=== PATIENT | female | born 1935 | race Two or more races ===

== ENCOUNTER 2024-11-04 14:08 | Inpatient (IN) | payer MEDICARE ==
[~2024-11-04] VITALS: Ht 154.9 cm; Wt 61.1 kg
--- NOTE | 2024-11-04 14:22 | ECG ---
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
--- NOTE | 2024-11-04 14:55 | ED.PDOC ---
Altered Mental Status HPI Comments 89 y.o female with PMHx of vertigo, HTN and HLD, residing in an assisted living facility, presented to the ED via EMS following a witnessed syncopal episode. Patient complained of abdominal and low back pain to a staff member in her home helping her with something. Staff member helped the patient into a wheelchair, at which point the syncopal episode occurred. Upon awakening, patient experienced multiple episodes of nausea and vomiting. EMS administered 4mg of Zofran ODT, resulting in symptom improvement. The patient reports her back pain began at approximately 1300 today after eating. She denies any associated head injuries, chest pain, or shortness of breath. Her medical history is notable for an abdominal infection two months prior, for which she was admitted and treated without further issues. At the time of presentation, she reports no abdominal pain however does have diffuse tenderness on palpation. Actively presents with dizziness as well as back pain. 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, Medications, Allergies Allergies: Coded Allergies: Codeine (Unverified Allergy, Unknown, 07/03/24) Information Source: Patient, Emergency Med Personnel Mode of Arrival: EMS Severity: Moderate Timing: Hours Duration: Since onset Prehospital treatment: Treatment (4mg Zofran ODT ) Quality: Decreased Alertness Recent: Nausea, Vomiting History of: None Associated Signs and Symptoms: Other Past Medical History PAST MEDICAL HISTORY: CHF, High Lipids, HTN Past Medical History (Other): vertigo Surgical History: Denies all surgeries CHILD WELFARE WORKER History: No Pertinent CHILD WELFARE WORKER History Family History Family History: Reviewed,noncontributory to illness Social History Smoker: Non-Smoker Alcohol: Denies ETOH Use Drugs: Denies Drug Use Lives In: Assisted Care Constitutional: denies: chills, diaphoresis, fatigue, fever, malaise, sweats, weakness, others EENTM: denies: blurred vision, double vision, ear bleeding, ear discharge, ear drainage, ear pain, ear ringing, eye pain, eye redness, hearing loss, mouth pain, mouth swelling, nasal discharge, nose bleeding, nose congestion, nose pain, photophobia, tearing, throat pain, throat swelling, voice changes, others Respiratory: denies: cough, hemoptysis, orthopnea, SOB at rest, shortness of breath, SOB with excertion, stridor, wheezing, others Cardiovascular: reports: lightheadedness, syncope; denies: chest pain, dizzy spells, diaphoresis, Dyspnea on exertion, edema, irregular heart beat, left arm pain, palpitations, PND, others Gastrointestinal: reports: abdominal pain, nausea, vomiting; denies: abdomen distended, blood streaked bowels, constipated, diarrhea, dysphagia, difficulty swallowing, hematemesis, melena, poor appetite, poor fluid intake, rectal bleeding, rectal pain, others Genitourinary: denies: abnormal vagina bleeding, burning, dyspareunia, dysuria, flank pain, frequency, hematuria, incontinence, pain, , vagina discharge, urgency, others Neurological: reports: dizziness; denies: fainting, headache, left sided numbness, left sided weakness, numbness, paresthesia, pre-existing deficit, right sided numbness, right sided weakness, seizure, speech problems, tingling, tremors, weakness, others Musculoskeletal: denies: back pain, gout, joint pain, joint swelling, muscle pain, muscle stiffness, neck pain, others Integumetry: denies: bruises, change in color, change in hair/nails, dryness, laceration, lesions, lumps, rash, wounds, others Allergic/Immunocompromised: denies: Difficulty Healing, Frequent Infections, Hives, Itching, others Endocrine: denies: excessive hunger, excessive sweating, excessive thirst, excessive urination, flushing, intolerance to cold, intolerance to heat, unexplained weight gain, unexplained weight loss, others Psychiatric: denies: anxiety, bipolar disorder, depression, hopeless, panic disorder, schizophrenia, sleepless, suicidal, others All Other Systems: Reviewed and Negative Physical Exam General Appearance: No Apparent Distress HEENT: Other (Pupils and face symmetric. Moist mucous membranes.) Neck: Full Range of Motion, Normal Inspection Respiratory: Lungs Clear, No Accessory Muscle Use, No Respiratory Distress, Normal Breath Sounds Cardiovascular: No Edema, No JVD, Regular Rate/Rhythm Breast Exam: Deferred Gastrointestinal: Diffuse, Soft, Tenderness Genitalia: Deferred Pelvic: Deferred Rectal: Deferred Extremities: Normal inspection, Normal range of motion, Non-tender, No pedal edema Neurologic: Alert (Oriented x4), Normal Affect, Normal Mood, Other (No gross focal deficit) Cerebellar Function: NOT DONE Reflexes: NOT DONE Skin: Dry, Normal Color, Warm Lymphatic: NOT DONE EKG EKG : Comments Sinus rhythm, rate 68, normal intervals, left axis deviation, no ST/T change. Was a procedure done? Was a procedure done?: No Differential Diagnosis (ALOC) Differential Diagnosis: Dehydration, Hypoglycemia, Encephalopathy, Heart Failure Other Differential Diagnosis Gastroenteritis, gastritis, colitis, diverticular disease, UTI, arrhythmia, RI, vasovagal syncope, CVA, TIA, among others X-Ray, Labs, Meds, VS Vital Signs Date Time Temp Pulse Resp B/P (MAP) Pulse Ox O2 Delivery O2 Flow Rate FiO2 11/04/24 19:45 66 11 94 Room Air* 0 21 11/04/24 19:45 97.8 66 11 162/59 (93) 94 97.8 11/04/24 19:00 67 12 152/52 (85) 95 11/04/24 17:00 69 12 149/61 (90) 97 11/04/24 15:20 97.9 80 12 152/62 (92) 97 97.9 11/04/24 15:20 80 12 97 Room Air* 0 21 11/04/24 14:20 97.7 72 20 140/57 96 97.7 11/04/24 14:11 68 Lab Test 11/04/24 17:11 11/04/24 16:03 11/04/24 15:00 11/04/24 14:41 Range/Units Lactic Acid Level 2.0 2.2 *H 0.4-2.0 mmol/L Troponin I High Sensitivity 20 19 </=34 ng/L White Blood Count 8.0 4.4-10.8 10^3/uL Red Blood Count 4.45 4.0-5.20 10^6/uL Hemoglobin 13.5 12.2-16.2 g/dL Hematocrit 39.9 36.0-46.0 % Mean Corpuscular Volume 89.6 80.0-100.0 fL Mean Corpuscular Hemoglobin 30.2 28.0-32.0 pg Mean Corpuscular Hemoglobin Concent 33.7 32.0-36.0 g/dL Red Cell Distribution Width 12.5 11.8-14.3 % Platelet Count 200 140-450 10^3/uL Mean Platelet Volume 8.0 6.9-10.8 fL Neutrophils (%) (Auto) 73.3 37.0-80.0 % Lymphocytes (%) (Auto) 19.7 10.0-50.0 % Monocytes (%) (Auto) 5.3 0.0-12.0 % Eosinophils (%) (Auto) 1.2 0.0-7.0 % Basophils (%) (Auto) 0.5 0.0-2.0 % Neutrophils # (Auto) 5.9 1.6-8.6 10 ^3/uL Lymphocytes # (Auto) 1.6 0.4-5.4 10 ^3/uL Monocytes # (Auto) 0.4 0-1.3 10 ^3/uL Eosinophils # (Auto) 0.1 0-0.8 10 ^3/uL Basophils # (Auto) 0 0-0.2 10 ^3/uL Nucleated Red Blood Cells 0.0 % Sodium Level 142 136-145 mmol/L Potassium Level 3.5 3.5-5.1 mmol/L Chloride Level 100 98-107 mmol/L Carbon Dioxide Level 33 H 20-31 mmol/L Anion Gap 9 5-15 Blood Urea Nitrogen 22 9-23 mg/dL Creatinine 0.92 0.550-1.02 mg/dL Glomerular Filtration Rate Calc 60 >90 mL/min BUN/Creatinine Ratio 23.9 H 10.0-20.0 Serum Glucose 186 H 74-106 mg/dL Calcium Level 9.0 8.7-10.4 mg/dL B-Type Natriuretic Peptide 244.59 0-100 pg/mL Current Medications Medications (Trade) Dose Ordered Sig/Giovana Route Start Time Stop Time Status Last Admin Sodium Chloride 500 ml @ 500 mls/hr Q1H ONCE IV 11/04/24 16:30 11/04/24 17:29 DC 11/04/24 18:59 Ondansetron HCl (Zofran) 4 mg ONCE ONCE IV 11/04/24 16:30 11/04/24 16:31 DC 11/04/24 19:01 PROCEDURE(s): HWOCT - HEAD WITHOUT CONTRAST REASON: syncope ORDER NUMBER(s): [id number], ACCESSION NUMBER(s): [id number] EXAM: CT HEAD WITHOUT CONTRAST INDICATION: syncope TECHNIQUE: CT images of the head were obtained without administration of IV contrast. CT scans at this facility use dose modulation, iterative reconstruction, and/or weight based dosing when appropriate to reduce radiation dose to as low as reasonably achievable. COMPARISON: None FINDINGS: PARENCHYMA: No acute hemorrhage. There is no mass effect, midline shift, or herniation. There is preservation of the lenz white differentiation. Mild scattered hypoattenuation along the periventricular, centrum semiovale, and deep white matter tracts, which are nonspecific however statistically most likely represent chronic microvascular ischemic change. VENTRICLES: No hydrocephalus. EXTRA-AXIAL SPACES: No extra-axial fluid collections. OTHER: The bony structures are intact. Visualized portions of the paranasal sinuses and mastoid air cells are clear. IMPRESSION: 1. No CT evidence of an acute intracranial abnormality. 2. Mild chronic microvascular ischemic change. EDURE(s): CXRP - CHEST PORTABLE REASON: syncope ORDER NUMBER(s): [id number], ACCESSION NUMBER(s): [id number] EXAM: XY CHEST PORTABLE HISTORY: syncope TECHNIQUE: 1 view of the chest COMPARISON: None FINDINGS/IMPRESSION: LUNGS: No pleural effusion, consolidation, or pneumothorax MEDIASTINUM: Unremarkable BONES: No acute osseous abnormality OTHER: None EDURE(s): ABPL - CT AB PEL WO CON-NO ORAL OR IV REASON: abd pain n/v/constip ORDER NUMBER(s): [id number], ACCESSION NUMBER(s): [id number] EXAM: CT CT AB PEL WO CON-NO ORAL OR IV INDICATION: abd pain n/v/constip TECHNIQUE: Volumetric multidetector CT images of the abdomen and pelvis were obtained without contrast. All CT scans at this facility use dose modulation, iterative reconstruction, and/or weight based dosing when appropriate to reduce radiation dose to as low as reasonably achievable. COMPARISON: CT CT AB PEL WO CON-NO ORAL OR IV on DOS: 07/04/24 FINDINGS: [LOWER CHEST]: The partially visualized lung bases are clear without a pleural effusion. The cardiac size is normal without pericardial effusion. [LIVER]: Normal hepatic size without suspicious focal lesion. [GALLBLADDER AND BILIARY TREE]: Surgically absent. [SPLEEN]: Unremarkable. [PANCREAS]: Unremarkable. [ADRENAL GLANDS]: Unremarkable [KIDNEYS]: No hydronephrosis. Left 1 - 2 mm nonobstructive renal calyceal stones. [BLADDER]: Unremarkable for the degree distention. [REPRODUCTIVE ORGANS]: Hysterectomy. [BOWEL/MESENTERY]: Stomach is normal. No CT evidence of bowel obstruction. Mild to moderate sigmoid diverticulosis. [ASCITES]: Absent [LYMPHADENOPATHY]: No pathologically enlarged lymph nodes by CT size criteria [VASCULATURE]: No aneurysmal dilatation. [ABDOMINAL WALL]: Unremarkable. [MUSCULOSKELETAL]: No acute fracture or aggressive focal osseous lesion. Multifocal degenerative change of the visualized spine. IMPRESSION: 1. No CT evidence of an acute abdominal/pelvic process. 2. Mild to moderate sigmoid diverticulosis. 3. Nonobstructive left renal calyceal stones. 4. Mild to moderate sigmoid diverticulosis. X-Ray, Labs, Meds, VS Comment 89-year-old female with a history of vertigo, hypertension, dyslipidemia and CHF presenting with abdominal pain, back pain, nausea, vomiting and a syncopal episode associated with dizziness Vitals remarkable for BP 140/57 Exam remarkable for diffuse abdominal tenderness Rhythm strip independently interpreted by me: Sinus rhythm, rate 68, no ectopy. Head CT, chest x-ray and CT abdomen and pelvis unremarkable for any acute finding CBC, basic metabolic panel and troponin unremarkable. BNP 244.59. Lactate 2.2 Patient treated with the following in the ED: 500 cc 0.9 normal saline IV bolus, Tylenol 1 g p.o., Zofran 4 mg IV On re-evaluation, patient states nausea has improved. Pain has somewhat improved. Vitals were stable. Patient states she still feels generally weak and somewhat dizzy. Plan is to admit the patient for observation, possible brain MRI and neuro evaluation. Time of 1ST Reevaluation: 15:00 Reevaluation 1ST: Unchanged Patient Education/Counseling: Diagnosis, Treatment, Prognosis Family Education/Counseling: No Family Present SEPSIS Sepsis Screen Date sepsis recognized/suspect: Nov 04, 2024 Time Sepsis recognized/suspect: 1416 Recent Procedure: No On Antibiotic Therapy: No Respiratory Rate >20: No Heart Rate >90: No Temp<36 C (96.8 F) or >38.3 C: No SBP <90 or MAP <65 mmHG: No New Acute Mental Status Change: No Is the patient on CPAP, BIPAP,: No SEPSIS EXCLUSION NOTE: Sepsis Exclusion Note: Patient presents with SIRS criteria, but the SIRS response is attributed to [dehydration ], not sepsis. Sepsis bundle is not initiated at this time, due to this reason. Further management will focus on the treatment of the above condition (s). Physician Orders Chest Portable (11/04/24 14:29) Urinalysis (11/04/24 14:29) Head Without Contrast (11/04/24 14:29) Ct Ab Pel Wo Con-No Oral Or Iv (11/04/24 14:37) Blood Culture (11/04/24 14:37) Insert/Manage Urinary Catheter QSHIFT (11/04/24 19:55) Vital Signs Date Time Temp Pulse Resp B/P (MAP) Pulse Ox O2 Delivery O2 Flow Rate FiO2 11/04/24 19:45 66 11 94 Room Air* 0 21 11/04/24 19:45 97.8 66 11 162/59 (93) 94 97.8 11/04/24 19:00 67 12 152/52 (85) 95 11/04/24 17:00 69 12 149/61 (90) 97 11/04/24 15:20 97.9 80 12 152/62 (92) 97 97.9 11/04/24 15:20 80 12 97 Room Air* 0 21 11/04/24 14:20 97.7 72 20 140/57 96 97.7 11/04/24 14:11 68 Laboratory Tests Test 11/04/24 14:41 11/04/24 15:00 11/04/24 17:11 White Blood Count 8.0 10^3/uL (4.4-10.8) Lactic Acid Level 2.2 mmol/L (0.4-2.0) *H 2.0 mmol/L (0.4-2.0) Medications Medications Dose Ordered Sig/Giovana Route Start Time Stop Time Status Last Admin Dose Admin Ondansetron HCl 4 mg ONCE ONCE IV 11/04/24 16:30 11/04/24 16:31 DC 11/04/24 19:01 Sodium Chloride 500 ml @ 500 mls/hr Q1H ONCE IV 11/04/24 16:30 11/04/24 17:29 DC 11/04/24 18:59 Departure 1 Departure Time of Disposition: 16:21 Impression: Primary Impression: Syncope Additional Impressions: Abdominal pain Nausea and vomiting Generalized weakness Disposition: ADMITTED INPATIENT Admit to: Tele Condition: Guarded Critical Care Note Critical Care Time?: No Stability Stability form required: No Heart Score Heart Score: Heart Score Response (Comments) Value History N/A 0 EKG N/A 0 Age N/A 0 Risk Factors N/A 0 Troponin N/A 0 Total 0 I personally scribed for CALISTA SOTELO MD ([email or web address]) on 11/04/24 at 14:54. Electronically submitted by Jaida Cadena ([facility]). CALISTA SOTELO MD Nov 04, 2024 14:54
[2024-11-04 14:56] LABS: Hematocrit 39.9 % (36.0-46.0); Hemoglobin 13.5 g/dL (12.2-16.2); Mean Corpuscular Hemoglobin 30.2 pg (28.0-32.0); Mean Corpuscular Volume 89.6 fL (80.0-100.0); Nucleated Red Blood Cells % 0.0 %
[2024-11-04 15:07] LABS: Chloride 100 mmol/L (98-107); Sodium 142 mmol/L (136-145)
[2024-11-04 15:08] LABS: Anion Gap 9 (5-15); Calcium 9.0 mg/dL (8.7-10.4)
[2024-11-04 15:13] LABS: BUN/Creatinine Ratio 23.9 (10.0-20.0); Blood Urea Nitrogen 22 mg/dL (9-23)
[2024-11-04 15:17] LABS: Carbon Dioxide 33 mmol/L (20-31); Glucose 186 mg/dL (74-106); Potassium 3.5 mmol/L (3.5-5.1)
[2024-11-04 15:20] VITALS: PULSE 80; RESP 12; O2SAT 97
--- NOTE | 2024-11-04 15:46 | DVH ---
EXAM: XY CHEST PORTABLE HISTORY: syncope TECHNIQUE: 1 view of the chest COMPARISON: None FINDINGS/IMPRESSION: LUNGS: No pleural effusion, consolidation, or pneumothorax MEDIASTINUM: Unremarkable BONES: No acute osseous abnormality OTHER: None
--- NOTE | 2024-11-04 15:57 | DVH ---
EXAM: CT HEAD WITHOUT CONTRAST INDICATION: syncope TECHNIQUE: CT images of the head were obtained without administration of IV contrast. CT scans at [facility] facility use dose modulation, iterative reconstruction, and/or weight based dosing when appropriate to reduce radiation dose to as low as reasonably achievable. COMPARISON: None FINDINGS: PARENCHYMA: No acute hemorrhage. There is no mass effect, midline shift, or herniation. There is pres ervation of the lenz white differentiation. Mild scattered hypoattenuation along the periventricular, centrum semiovale, and deep white matter tracts, which are nonspecific however statistically most li lorna represent chronic microvascular ischemic change. VENTRICLES: No hydrocephalus. EXTRA-AXIAL SPACES: No extra-axial fluid collections. OTHER: The bony structures are intact. Visualized portions of the paranasal sinuses and mastoid air cells are clear. IMPRESSION: 1. No CT evidence of an acute intracranial abnormality. 2. Mild chronic microvascular ischemic change.
[2024-11-04 16:02] LABS: Lactic Acid w/Reflex 2.2 mmol/L (0.4-2.0)
--- NOTE | 2024-11-04 16:04 | DVH ---
EXAM: CT CT AB PEL WO CON-NO ORAL OR IV INDICATION: abd pain n/v/constip TECHNIQUE: Volumetric multidetector CT images of the abdomen and pelvis were obtained without contras t. All CT scans at this facility use dose modulation, iterative reconstruction, and/or weight based d osing when appropriate to reduce radiation dose to as low as reasonably achievable. COMPARISON: CT CT AB PEL WO CON-NO ORAL OR IV on DOS: 07/04/24 FINDINGS: [LOWER CHEST]: The partially visualized lung bases are clear without a pleural effusion. The cardiac size is normal without pericardial effusion. [LIVER]: Normal hepatic size without suspicious focal lesion. [GALLBLADDER AND BILIARY TREE]: Surgically absent. [SPLEEN]: Unremarkable. [PANCREAS]: Unremarkable. [ADRENAL GLANDS]: Unremarkable [KIDNEYS]: No hydronephrosis. Left 1 - 2 mm nonobstructive renal calyceal stones. [BLADDER]: Unremarkable for the degree distention. [REPRODUCTIVE ORGANS]: Hysterectomy. [BOWEL/MESENTERY]: Stomach is normal. No CT evidence of bowel obstruction. Mild to moderate sigmoid d iverticulosis. [ASCITES]: Absent [LYMPHADENOPATHY]: No pathologically enlarged lymph nodes by CT size criteria [VASCULATURE]: No aneurysmal dilatation. [ABDOMINAL WALL]: Unremarkable. [MUSCULOSKELETAL]: No acute fracture or aggressive focal osseous lesion. Multifocal degenerative dubose ge of the visualized spine. IMPRESSION: 1. No CT evidence of an acute abdominal/pelvic process. 2. Mild to moderate sigmoid diverticulosis. 3. Nonobstructive left renal calyceal stones. 4. Mild to moderate sigmoid diverticulosis.
[2024-11-04] MEDS ORDERED: MORPHINE SULFATE 4 MG/ML SYR/VIAL IV ONE (16:30)
[2024-11-04] MEDS: SODIUM CHLORIDE 0.9% 500 ML IV ONE (18:59)
[2024-11-04] MEDS: ONDANSETRON HCL 4 MG/2 ML VIAL IV ONE (19:01)
[2024-11-04] MEDS ORDERED: HYDROcodone-ACET 5/325MG TAB PO ONE (19:15)
[2024-11-04 19:45] VITALS: PULSE 66; RESP 11; O2SAT 94
[2024-11-04] MEDS: ONDANSETRON HCL 4 MG/2 ML VIAL ONE (20:26)
[2024-11-04] MEDS: ACETAMINOPHEN 325 MG TAB PO ONE ×2 (20:36→20:37)
[2024-11-04] MEDS ORDERED: ACETAMINOPHEN 325 MG TAB PO PRN (22:30)
[2024-11-04] MEDS ORDERED: ONDANSETRON HCL 4 MG/2 ML VIAL IV PRN (22:30)
[2024-11-04] MEDS ORDERED: DOCUSATE SOD 100 MG CAP PO PRN (22:30)
[2024-11-04 22:33] LABS: Urine Budding Yeast OCCASIONAL /hpf (None Seen); Urine Protein, UAD Negative (Negative)
--- NOTE | 2024-11-04 22:56 | DVHHPRES ---
History of Present Illness Resident Creating Document: JAZIEL CARBAJAL RESIDENT History of Present Illness Moon Metzger is a 89 year old female with past medical history of vertigo, hypertension, hyperlipidemia, CHF who lives in a assisted living facility presented to the ED with chief complaints of dizziness followed by a syncopal episode. Patient states that she was feeling dizzy in the morning after she woke up, went to a neighbor's house for lunch and when returning to get out of her wheelchair which caused a severe pain in her lower back for which after she felt lightheaded, dizzy, states that she passed out in her walker according to her caregiver. As per the caregiver she lost consciousness for 2-3 minutes in her wheelchair. Patient states that she does not remember passing out and on awakening she saw vomit on herself. Patient states that she never lost consciousness before, but has had multiple fall episodes due to feeling dizzy. As of now patient states she has lower back pain, and dizziness but denies any chest pain, head injuries, shortness for breath, palpitations, nausea, vomiting, fever, chills, headaches, dysuria, diarrhea. Patient also states that she had been taking Eliquis in the past for some type of clot which she is unsure of. Patient is admitted for further evaluation and management. Past medical history: vertigo, hypertension, hyperlipidemia, CHF Past surgical history: Appendicectomy, hysterectomy, cholecystectomy Family history: Reviewed, noncontributory Personal history: Denies smoking, drinking, drug use Lives in: Assisted Living facility Review of Systems Constitutional: Yes: Other (Dizziness, syncope); No: Fever, Chills, Sweats, Weakness, Malaise Eyes: No: Pain, Vision change, Conjunctivae inflammation, Eyelid inflammation, Other, Redness ENT: No: Ear pain, Ear discharge, Nose pain, Nose discharge, Nose congestion, Mouth pain, Mouth swelling, Throat pain, Throat swelling, Other Respiratory: No: Cough, Dry, Shortness of breath, SOB with excertion, Wheezing, Hemoptysis, Pleuritic Pain, Sputum, Wheezing, Other Cardiovascular: No: Chest Pain, Palpitations, Orthopnea, Paroxysmal Noc. Dyspnea, Edema, Lt Headedness, Other Gastrointestinal: Nausea, Vomiting; No: Abdominal Pain, Diarrhea, Constipation, Melena, Hematochezia, Other Genitourinary: No Dysuria, No Frequency, No Incontinence, No Hematuria, No Retention, No Other Musculoskeletal: No: other, neck pain, shoulder pain, arm pain, back pain, hand pain, leg pain, foot pain Skin: No: Rash, Lesions, Jaundice, Bruising, Other Neurological: No: Weakness, Numbness, Incoordination, Change in speech, Confusion, Seizures, Other Allergies: Coded Allergies: Codeine (Unverified Allergy, Unknown, 07/03/24) Exam Vital Signs Vital Signs Date Time Temp Pulse Resp B/P (MAP) Pulse Ox O2 Delivery O2 Flow Rate FiO2 11/04/24 21:45 98.0 11/04/24 19:45 66 11 94 Room Air* 0 21 11/04/24 19:45 162/59 (93) Exam General: Patient alert and oriented in person, place and time. Patient following commands. HEENT: Normocephalic, atraumatic, moist mucous membranes Respiratory/pulmonary: Clear lungs bilaterally, vesicular murmurs present in almost all lung roy, no associated crackles or wheezes. Cardiovascular: Normal heart sounds S1 and S2 with no associated murmurs Abdomen: Abdomen nondistended, there is no pain to palpation in any of the abdominal quadrants, no palpable masses. Extremities: There is no peripheral edema present at the lower extremities. Peripheral Pulses: 3+ Radial (R). 3+ Radial (L). 3+ Dorsalis pedis (R). 3+ Dorsalis pedis(L) Skin: No rashes or pruritus, there is no sacral edema present at this time. Neurological: Intact cranial nerves with no focal neurologic deficits Psych/mood: Normal Labs/Xrays Labs Test 11/04/24 22:00 11/04/24 17:11 11/04/24 16:03 11/04/24 14:41 Range/Units Urine Color Light-yellow Yellow Urine Clarity Turbid H Clear Urine pH 7.0 5.0-9.0 Urine Specific [place] 1.009 1.001-1.035 Urine Protein Negative Negative Urine Ketones Negative Negative Urine Blood Trace H Negative /uL Urine Nitrite 2+ H Negative Urine Bilirubin Negative Negative Urine Urobilinogen Normal Negative mg/dL Urine Leukocyte Esterase Trace Negative /uL Urine RBC 1 0 - 4 /hpf Urine Microscopic WBC 6 H 0-5 /HPF Urine Squamous Epithelial Cells Few <5 /hpf Urine Bacteria Few H None Seen /hpf Urine Yeast (Budding) Occasional None Seen /hpf Urine Glucose Normal Normal mg/dL Lactic Acid Level 2.0 0.4-2.0 mmol/L Troponin I High Sensitivity 20 </=34 ng/L White Blood Count 8.0 4.4-10.8 10^3/uL Red Blood Count 4.45 4.0-5.20 10^6/uL Hemoglobin 13.5 12.2-16.2 g/dL Hematocrit 39.9 36.0-46.0 % Mean Corpuscular Volume 89.6 80.0-100.0 fL Mean Corpuscular Hemoglobin 30.2 28.0-32.0 pg Mean Corpuscular Hemoglobin Concent 33.7 32.0-36.0 g/dL Red Cell Distribution Width 12.5 11.8-14.3 % Platelet Count 200 140-450 10^3/uL Mean Platelet Volume 8.0 6.9-10.8 fL Neutrophils (%) (Auto) 73.3 37.0-80.0 % Lymphocytes (%) (Auto) 19.7 10.0-50.0 % Monocytes (%) (Auto) 5.3 0.0-12.0 % Eosinophils (%) (Auto) 1.2 0.0-7.0 % Basophils (%) (Auto) 0.5 0.0-2.0 % Neutrophils # (Auto) 5.9 1.6-8.6 10 ^3/uL Lymphocytes # (Auto) 1.6 0.4-5.4 10 ^3/uL Monocytes # (Auto) 0.4 0-1.3 10 ^3/uL Eosinophils # (Auto) 0.1 0-0.8 10 ^3/uL Basophils # (Auto) 0 0-0.2 10 ^3/uL Nucleated Red Blood Cells 0.0 % Sodium Level 142 136-145 mmol/L Potassium Level 3.5 3.5-5.1 mmol/L Chloride Level 100 98-107 mmol/L Carbon Dioxide Level 33 H 20-31 mmol/L Anion Gap 9 5-15 Blood Urea Nitrogen 22 9-23 mg/dL Creatinine 0.92 0.550-1.02 mg/dL Glomerular Filtration Rate Calc 60 >90 mL/min BUN/Creatinine Ratio 23.9 H 10.0-20.0 Serum Glucose 186 H 74-106 mg/dL Calcium Level 9.0 8.7-10.4 mg/dL B-Type Natriuretic Peptide 244.59 0-100 pg/mL SEPSIS Sepsis Screen Date sepsis recognized/suspect: Nov 04, 2024 Time Sepsis recognized/suspect: 1948 Recent Procedure: No On Antibiotic Therapy: No Respiratory Rate >20: No Heart Rate >90: No Temp<36 C (96.8 F) or >38.3 C: No SBP <90 or MAP <65 mmHG: No New Acute Mental Status Change: No Is the patient on CPAP, BIPAP,: No Physician Orders Insert/Manage Urinary Catheter QSHIFT (11/04/24 19:55) Admit (11/04/24 22:21) Allergies (11/04/24 22:21) Ondansetron Hcl (Zofran) (11/04/24 22:30) Docusate Sodium Capsule (Colace Capsule) (11/04/24 22:30) Fall Risk Precautions In Place QSHIFT (11/04/24 22:21) Complete Blood Count (11/05/24 04:00) Comprehensive Metabolic Panel (11/05/24 04:00) Condition: Serious (11/04/24 22:21) Acetaminophen Tablet (Tylenol Tablet) (11/04/24 22:30) Vital Signs Date Time Temp Pulse Resp B/P (MAP) Pulse Ox O2 Delivery O2 Flow Rate FiO2 11/04/24 21:45 98.0 11/04/24 19:45 66 11 94 Room Air* 0 21 11/04/24 19:45 97.8 66 11 162/59 (93) 94 97.8 11/04/24 19:00 67 12 152/52 (85) 95 11/04/24 17:00 69 12 149/61 (90) 97 11/04/24 15:20 97.9 80 12 152/62 (92) 97 97.9 11/04/24 15:20 80 12 97 Room Air* 0 21 Laboratory Tests Test 11/04/24 14:41 11/04/24 15:00 11/04/24 17:11 White Blood Count 8.0 10^3/uL (4.4-10.8) Lactic Acid Level 2.2 mmol/L (0.4-2.0) *H 2.0 mmol/L (0.4-2.0) Medications Medications Dose Ordered Sig/Giovana Route Start Time Stop Time Status Last Admin Dose Admin Acetaminophen 650 mg ONCE ONCE PO 11/04/24 20:00 11/04/24 20:01 DC 11/04/24 20:36 650 MG Ondansetron HCl 4 mg ONCE ONCE IV 11/04/24 16:30 11/04/24 16:31 DC 11/04/24 19:01 4 MG Sodium Chloride 500 ml @ 500 mls/hr Q1H ONCE IV 11/04/24 16:30 11/04/24 17:29 DC 11/04/24 18:59 500 MLS/HR Assessment/Plan Assessment/Plan Assessment and plan # syncope due to ? Dehydration ? orthostatic hypotension? arrythemias? - Head Ct showed Mild chronic microvascular ischemic change. - vitamin-B12 - TSH - Folate -orthostatic vitals - BNP - EKG # Acute Complicated UTI ?Pyelonephritis - IV ceftriaxone -urine culture # 1 - 2 mm Nonobstructive left renal calyceal stones # Mild to moderate sigmoid diverticulosis. - follow-up outpatient # hypertension - continue home meds # hyperlipidemia - continue home meds # history of vertigo PPI prophylaxis: Pantoprazole DVT prophylaxis: not indicated Goals of care addressed with the patient for more than 33 minutes: Full code status Case discussed with Dr. Colbert , patient and nurse Plan discussed with: Patient My Orders Orders - JAZIEL CARBAJAL RESIDENT Procedure Category Date Status Time Admit ADMIT 11/04/24 Transmitted 22:21 Allergies JEREMY 11/04/24 In Process 22:21 Ondansetron Hcl PHA 11/04/24 In Process (Zofran) 22:30 Docusate Sodium PHA 11/04/24 In Process Capsule (Colace 22:30 Fall Risk Precautions JEREMY 11/04/[address] 22:21 Complete Blood Count LAB 11/05/24 Verified 04:00 Comprehensive LAB 11/05/24 Verified Metabolic Panel 04:00 Condition: Serious JEREMY 11/04/24 In Process 22:21 Acetaminophen Tablet PHA 11/04/24 In Process (Tylenol Tablet) 22:30 Date of Service: Nov 04, 2024 Billing Provider: MARIIA COLBERT MD Common Visit Codes: [id number] INP/OBS CARE (HIGH) Secondary Visit Codes: [id number] CARE PLAN 30 MINUTES JAZIEL CARBAJAL RESIDENT Nov 04, 2024 22:56 SHAHLA WOOD RESIDENT Nov 05, 2024 04:31
[2024-11-05 01:44] LABS: INR 1.05 (0.9-1.15); Partial Thromboplastin Time 26.0 SEC (24.5-34.5); Prothrombin Time 11.1 sec (9.3-11.8)
[2024-11-05 05:41] LABS: Hematocrit 38.6 % (36.0-46.0); Hemoglobin 12.8 g/dL (12.2-16.2); Mean Corpuscular Hemoglobin 29.5 pg (28.0-32.0); Mean Corpuscular Volume 89.2 fL (80.0-100.0); Nucleated Red Blood Cells % 0.1 %
[2024-11-05 05:50] LABS: Albumin 3.5 g/dL (3.2-4.8); Anion Gap 9 (5-15); BUN/Creatinine Ratio 14.9 (10.0-20.0); Bilirubin, Total 0.8 mg/dL (0.2-1.0); Blood Urea Nitrogen 11 mg/dL (9-23); Calcium 9.1 mg/dL (8.7-10.4); Carbon Dioxide 30 mmol/L (20-31); Chloride 104 mmol/L (98-107); Glucose 105 mg/dL (74-106); Sodium 143 mmol/L (136-145); Total Protein 6.2 g/dL (5.7-8.2)
[2024-11-05 05:51] LABS: Alanine Aminotransferase 76 U/L (7-40); Alkaline Phosphatase 145 U/L (46-116); Potassium 3.5 mmol/L (3.5-5.1)
[2024-11-05] MEDS: InsuLIN REG 1unit/0.01ml Soln (100units/ml) SC SCH ×2 (07:00→21:30)
[2024-11-05] MEDS ORDERED: DEXTROSE (50%) 50ML SYRG IV PRN (07:00)
[2024-11-05] MEDS: ACCU-CHEK COMFORT CURVE STRIP VI SCH (07:10)
[2024-11-05] MEDS: InsuLIN REG 1unit/0.01ml Soln (100units/ml) ONE (07:27)
[2024-11-05 08:49] VITALS: PULSE 65; RESP 16; O2SAT 91
--- NOTE | 2024-11-05 08:59 | DVH ---
Carotid Duplex Date: 11/05/2024 08:18 AM Clinical History: Syncope Comparison: None Technique: Duplex Doppler evaluation of the extracranial carotid and vertebral arteries including col or Doppler and spectral/pulsed waveform analysis was performed. Findings: Velocities and ratios within normal limits IMPRESSION: No hemodynamically significant stenosis noted in the right carotid system. No hemodynamically significant stenosis noted in the left carotid system. Reference: Radiology 2003; 229:340-346
[2024-11-05] MEDS ORDERED: APIX2.5T PO (12:07)
[2024-11-05] MEDS ORDERED: HYDR12.55 PO (12:07)
[2024-11-05] MEDS ORDERED: FURO20TA4 PO (12:07)
[2024-11-05] MEDS ORDERED: POTA-211 PO (12:07)
[2024-11-05] MEDS ORDERED: ATEN25TA PO (12:07)
[2024-11-05] MEDS ORDERED: ATOR40TA52 PO (12:07)
--- NOTE | 2024-11-05 13:14 | DVHSR ---
APPROVED REPORT EXAM: Two-dimensional and M-mode echocardiogram with Doppler and color Doppler. Blood Pressure: 162/59 mmHg INDICATION Syncope RISK FACTORS Height: 61, Weight: 132 DIMENSIONS LVDd4.1 (3.8-5.7cm)LA (2D)3.7 (1.9-4.0cm)Aortic Root3.1 (2.0-3.7cm) LVDs2.9 (2.5-4.0cm)LA (MM) (1.9-4.0cm)Aortic Cusp Exc1.3 (1.5-2.0cm) EF (%) 55.0 (55-70%)Rt. Atrium3.8 (1.9-4.0cm)Asc. Aorta cm Mitral Valve MitralMitral Stenosis E wave1.05m/sMV Mean GR.2mmHg A wave0.59m/sMV Peak GR.70mmHg E/A ratio1.82D MVAcm2 DECEL [id number] 1/2 [id number] IVRTmsDop MVA3.50cm2 Aortic Valve Aortic ValveAortic Stenosis V10.82m/Miles Mean GR.4mmHg V21.36m/Miles Peak GR.7mmHg LVOT Diameter1.9 (1.8-2.4cm)Doppler AVA1.71cm2 Pulmonic Valve V20.75m/s Tricuspid Valve TR Velocity3.89m/s [id number] Other Information Technically limited study due to body habitus. Conclusion lvef 50% moderate LVH normal rv function normal atria no severe valve abnormality noted
[2024-11-05 13:20] VITALS: PULSE 65; RESP 16
[2024-11-05 13:50] VITALS: BP 155/72; PULSE 70; RESP 18; TEMP 98.2; O2SAT 96
[2024-11-05 17:00] VITALS: BP_SYST 159; BP_SYST 162; BP_SYST 174; BP_DIAS 75; BP_DIAS 78; BP_DIAS 81; PULSE 74; PULSE 80; PULSE 86; RESP 14; RESP 16; TEMP 98.5; O2SAT 93; O2SAT 94; O2SAT 96
[2024-11-05] MEDS ORDERED: ENOXAPARIN SOD 80 MG/0.8ML SYRINGE SC ONE (17:15)
[2024-11-05] MEDS: ATENOLOL 25 MG TAB PO ONE (18:53)
[2024-11-05 20:00] VITALS: PULSE 67
[2024-11-05 21:00] VITALS: BP_SYST 139; BP_SYST 144; BP_DIAS 68; BP_DIAS 70; BP_DIAS 73; PULSE 69; PULSE 71; PULSE 72; RESP 18; TEMP 98.6; O2SAT 91; O2SAT 92
[2024-11-05] MEDS: ENOXAPARIN SOD 60 MG/0.6 ML SYRINGE SC SCH (21:27)
[2024-11-05] MEDS ORDERED: ATORVASTATIN 20 MG TAB PO SCH (22:00)
--- NOTE | 2024-11-05 22:16 | DVHPNRES ---
Progress Note Date Seen: Nov 05, 2024 Resident Creating Document: HADLEY BARNETT RESIDENT Medical Necessity Reason Pt with a Central, PICC or Fol: No Subjective Review of Systems Ascencion Metzger a 89-year-old female with past medical history of vertigo, hypertension, hyperlipidemia, systolic heart failure with preserved ejection fraction living in assisted living facility presented to the ED with chief complaints of syncope preceded by dizziness. According to the admission notes, the caregiver noticed the patient slumped over in the wheelchair after returning from a neighbor's house. The patient reports loss of consciousness, upon regaining consciousness but the patient is covered herself covered with vomitus. She denies any chest pain, shortness of breath, fever, abdominal pain or any other complaints today. Past medical history: Vertigo, hypertension, hyperlipidemia, congestive heart failure Past surgical history, appendectomy, hysterectomy, cholecystectomy Family history noncontributory Personal history: Denies smoking drinking drug use Lives in assisted living facility Code status: Full code Patient was seen and examined at bedside. Overnight events were reviewed. Reports having mild dizziness, she denies any chest pain, shortness of breath, fever or any other complaints today. Objective vital signs Vital Sign Date Time Temp Pulse Resp B/P (MAP) Pulse Ox O2 Delivery O2 Flow Rate FiO2 11/05/24 18:53 74 162/78 11/05/24 17:00 16 93 11/05/24 17:00 98.5 98.5 11/05/24 13:20 Room Air* 0 21 Total Intake and Output 11/04/24 11/04/24 11/05/24 15:00 23:00 07:00 Intake Total 500 ml Balance 500 ml medications Current Medications Medications Dose Ordered Sig/Giovana Route Start Time Stop Time Status Last Admin Dose Admin Ondansetron HCl 4 mg Q4HP PRN IV 11/04/24 22:30 Acetaminophen 650 mg Q6HP PRN PO 11/04/24 22:30 Ceftriaxone Sodium 50 ml @ 100 mls/hr DAILY@09 IV 11/06/24 09:00 Diagnostic Test (Pha) 1 strip ACHS 11/05/24 07:00 11/05/24 21:29 1 STRIP Insulin Human Regular AC SC 11/05/24 07:00 Insulin Human Regular HS SC 11/05/24 22:00 Dextrose 50 ml UD PRN IV 11/05/24 07:00 Atorvastatin Calcium 20 mg HS PO 11/06/24 22:00 Enoxaparin Sodium 60 mg Q12HR SC 11/05/24 22:00 11/05/24 21:27 60 MG Atenolol 25 mg DAILY PO 11/06/24 10:00 Examination Pt is lying on bed General Appearance: Alert, Oriented X3, Cooperative, Mild distress HEENT: Atraumatic, Mucous membranes moist/pink Respiratory: Clear to auscultation, Normal air movement, No added sounds Cardiovascular: Regular rate, Normal S1, Normal S2, No murmurs Abdominal/ : Active bowel sounds, Soft, no distention, no tenderness Extremities: No edema, Normal pulses, No tenderness/swelling, 7x8 cm ecchymoses over bilateral wrist regions Skin: No Significant rash, except past surgical scars Neuro: Normal speech, sensorimotor deficits none Psych/Mental Status: Mental status NL, Mood NL Nurse was there as window sash installer during examination laboratory and microbiology Laboratory Tests 11/05/24 05:07 Test 11/05/24 05:07 Range/Units Serum Glucose 105 74-106 mg/dL Microbiology Date/Time Source Procedure Growth Status 11/05/24 09:21 Nose MRSA Screen - Final Complete 11/04/24 15:00 Blood Blood Culture - Preliminary NO GROWTH AFTER 24 HOURS OF INCUBATION. Resulted Labs and/or images reviewed: Labs reviewed by me, Image(s) reviewed by me Problem List/Assessment/Plan Problem List/Assessment/Plan Syncope likely orthostatic hypotension EKG: Sinus rhythm, left axis deviation: Low voltage in precordial leads, abnormal R-wave progression with late transition. Troponin 3 times negative BNP ordered. CT head without contrast: No acute hemorrhage, no mass effect or no midline shift, mild chronic microvascular ischemic changes Carotid ultrasound: No significant stenosis Precautions for fall risk in place. Orthostatic vitals, telemetry monitoring IV fluid Echocardiography ordered, pending results [id number] sigmoid diverticulosis CT abdomen and pelvis without contrast: No acute abdominal or pelvic pathology. [id number] sigmoid diverticulosis. Nonobstructive left renal caliceal stones. No active bleeding. Monitor signs symptoms and labs. Nonobstructive left renal caliceal stones Monitor renal functions Consider Urology consult if necessary Systolic heart failure with ejection fraction 50% BNP: 423 Stable no signs symptoms continue home medications: Atorvastatin, atenolol Constipation MiraLax Diabetes Mellitus hemoglobin A1c 6.8% Mild insulin sliding scale Complicated UTI Ceftriaxone Urine bacterial culture ordered, pending results Vitamin-D Vitamin B12 Folate Normal level Social: Possible discharge home with home health services GI prophylaxis: Pantoprazole DVT prophylaxis: Enoxaparin Goals of care discussed with the patient for more than 27 minutes: Full code status Case discussed with Dr. Valenzuela , patient and RN Plan discussed with: Patient, Other (RN) My Orders My Orders Orders - HADLEY BARNETT RESIDENT Procedure Category Date Status Time Clear Liq Diet DIET 11/05/24 Transmitted Lunch Pt Request For Service PT 11/05/24 Logged 11:51 Atorvastatin (Lipitor) PHA 11/06/24 In Process 22:00 Enoxaparin Sodium PHA 11/05/24 In Process (Lovenox) 22:00 Date of Service: Nov 05, 2024 Billing Provider: RAFAELA VALENZUELA MD Common Visit Codes: [id number] INP/OBS CARE(HIGH) HADLEY BARNETT RESIDENT Nov 05, 2024 22:16 ELLE FAUST RESIDENT Nov 09, 2024 06:36 RAFAELA VALENZUELA MD Nov 14, 2024 19:32
[2024-11-06] VITALS (9 sets, daily range): BP systolic 108–149; BP diastolic 56–75; PULSE 60–74; RESP 16–18; TEMP 97.8–99.3; O2SAT 93–96
[2024-11-06] MEDS: ATORVASTATIN 20 MG TAB PO ONE (00:11)
[2024-11-06] MEDS ORDERED: POLYETHYLENE GLYCOL 17 GM PWDR PO PRN (08:00)
[2024-11-06] MEDS: POLYETHYLENE GLYCOL 17 GM PWDR PO ONE (09:11)
[2024-11-06] MEDS: ATENOLOL 25 MG TAB PO SCH (09:12)
[2024-11-06] MEDS ORDERED: ENOXAPARIN SOD 80 MG/0.8ML SYRINGE SC SCH (10:00)
[2024-11-06] MEDS: SODIUM CHLORIDE 0.9% 1,000 ML IV SCH (14:18)
[2024-11-06] MEDS: ATORVASTATIN 20 MG TAB PO SCH (21:01)
--- NOTE | 2024-11-06 22:15 | DVHPNRES ---
Progress Note Date Seen: Nov 06, 2024 Resident Creating Document: HADLEY BARNETT RESIDENT Medical Necessity Reason Pt with a Central, PICC or Fol: No Subjective Review of Systems Ascencion Metzger a 89-year-old female with past medical history of vertigo, hypertension, hyperlipidemia, systolic heart failure with preserved ejection fraction living in assisted living facility presented to the ED with chief complaints of syncope preceded by dizziness. According to the admission notes, the caregiver noticed the patient slumped over in the wheelchair after returning from a neighbor's house. The patient reports loss of consciousness, upon regaining consciousness but the patient is covered herself covered with vomitus. She denies any chest pain, shortness of breath, fever, abdominal pain or any other complaints today. Past medical history: Vertigo, hypertension, hyperlipidemia, congestive heart failure Past surgical history, appendectomy, hysterectomy, cholecystectomy Family history noncontributory Personal history: Denies smoking drinking drug use Lives in assisted living facility Code status: Full code Patient was seen and examined at bedside. Overnight events were reviewed. She has mild dizziness and constipation, she denies any chest pain, shortness of breath, fever or any other complaints today. Objective vital signs Vital Sign Date Time Temp Pulse Resp B/P (MAP) Pulse Ox O2 Delivery O2 Flow Rate FiO2 11/06/24 20:00 Room Air* 0 21 11/06/24 18:15 145/75 (98) 11/06/24 17:00 98.7 66 16 94 98.7 Total Intake and Output 11/05/24 11/05/24 11/06/24 15:00 23:00 07:00 Intake Total 500 ml 400 ml Output Total 200 ml 350 ml Balance 300 ml 50 ml medications Current Medications Medications Dose Ordered Sig/Giovana Route Start Time Stop Time Status Last Admin Dose Admin Ondansetron HCl 4 mg Q4HP PRN IV 11/04/24 22:30 Acetaminophen 650 mg Q6HP PRN PO 11/04/24 22:30 Ceftriaxone Sodium 50 ml @ 100 mls/hr DAILY@09 IV 11/06/24 09:00 11/06/24 09:11 100 MLS/HR Diagnostic Test (Pha) 1 strip ACHS 11/05/24 07:00 11/06/24 21:01 1 STRIP Insulin Human Regular AC SC 11/05/24 07:00 Insulin Human Regular HS SC 11/05/24 22:00 Dextrose 50 ml UD PRN IV 11/05/24 07:00 Atorvastatin Calcium 20 mg HS PO 11/06/24 22:00 11/06/24 21:01 20 MG Enoxaparin Sodium 60 mg Q12HR SC 11/05/24 22:00 11/06/24 21:01 60 MG Atenolol 25 mg DAILY PO 11/06/24 10:00 11/06/24 09:12 25 MG Polyethylene Glycol 17 gm DAILYPRN PRN PO 11/06/24 08:00 Sodium Chloride 1,000 ml @ 75 mls/hr [id number] IV 11/06/24 12:15 11/06/24 14:18 75 MLS/HR Examination Examination Pt is lying on bed General Appearance: Alert, Oriented X3, Cooperative, Mild distress HEENT: Atraumatic, Mucous membranes moist/pink Respiratory: Clear to auscultation, Normal air movement, No added sounds Cardiovascular: Regular rate, Normal S1, Normal S2, No murmurs Abdominal/ : Active bowel sounds, Soft, no distention, no tenderness Extremities: No edema, Normal pulses, No tenderness/swelling, 7x8 cm ecchymoses over bilateral wrist regions Skin: No Significant rash, except past surgical scars Neuro: Normal speech, sensorimotor deficits none Psych/Mental Status: Mental status NL, Mood NL Nurse was there as storage solutions architect during examination laboratory and microbiology Laboratory Tests 11/05/24 05:07 Test 11/05/24 05:07 Range/Units Serum Glucose 105 74-106 mg/dL Microbiology Date/Time Source Procedure Growth Status 11/05/24 09:21 Nose MRSA Screen - Final Complete 11/04/24 22:00 Voided Urine Urine Culture - Preliminary Resulted 11/04/24 15:00 Blood Blood Culture - Preliminary NO GROWTH AFTER 48 HOURS OF INCUBATION. Resulted Labs and/or images reviewed: Labs reviewed by me, Image(s) reviewed by me Problem List/Assessment/Plan Problem List/Assessment/Plan Syncope orthostatic hypotension EKG: Sinus rhythm, left axis deviation: Low voltage in precordial leads, abnormal R-wave progression with late transition. Troponin 3 times negative BNP ordered. CT head without contrast: No acute hemorrhage, no mass effect or no midline shift, mild chronic microvascular ischemic changes Precautions for fall risk in place. Orthostatic vitals: Within normal limits (done 24 hours after admission) Telemetry monitoring IV fluid Echocardiography: Lvef 50% moderate LVH normal rv function normal atria no severe valve abnormality noted [id number] sigmoid diverticulosis CT abdomen and pelvis without contrast: No acute abdominal or pelvic pathology. Ivrg-[id number] sigmoid diverticulosis. Nonobstructive left renal caliceal stones. No active bleeding. Monitor signs symptoms and labs. Nonobstructive left renal caliceal stones Monitor renal functions Consider Urology consult if necessary Systolic heart failure with ejection fraction 50% BNP: 423 Stable no signs symptoms continue home medications: Atorvastatin, atenolol Constipation MiraLax Diabetes Mellitus hemoglobin A1c 6.8% Mild insulin sliding scale Complicated UTI Ceftriaxone Urine bacterial culture ordered, urine culture E coli Lactic acid was elevated, downtrending and normal. Blood cultures negative Vitamin-D Vitamin B12 Folate Normal level Social: Possible discharge home with home health services GI prophylaxis: Pantoprazole DVT prophylaxis: Enoxaparin Goals of care discussed with the patient for more than 27 minutes: Full code status Case discussed with , patient and RN Plan discussed with: Patient, Other (RN) My Orders My Orders Orders - HADLEY BARNETT RESIDENT Procedure Category Date Status Time Polyethylene Glycol PHA 11/06/24 In Process 17g Powder (Miralax 08:00 Sodium Chloride 0.9% PHA 11/06/24 In Process 12:15 Date of Service: Nov 06, 2024 Billing Provider: RAFAELA POSADAS MD Common Visit Codes: [id number] INP/OBS CARE(HIGH) HADLEY BARNETT RESIDENT Nov 06, 2024 22:15 ELLE FAUST RESIDENT Nov 09, 2024 06:41 RAFAELA POSADAS MD Nov 14, 2024 19:33
[2024-11-07 01:00] VITALS: BP 147/55; PULSE 72; RESP 17; TEMP 97.7; O2SAT 92
[2024-11-07 05:48] VITALS: BP 150/64; PULSE 71; TEMP 98; O2SAT 1
[2024-11-07 08:00] VITALS: PULSE 72
[2024-11-07 09:20] VITALS: BP 152/73; PULSE 72; RESP 18; TEMP 97.1; O2SAT 99
[2024-11-07] MEDS ORDERED: METF-370 PO (11:35)
[2024-11-07] MEDS ORDERED: CEPH250C PO (11:35)
[2024-11-07] MEDS ORDERED: ACET-1882 PO (11:35)
[2024-11-07 12:49] VITALS: BP 154/102; PULSE 60; RESP 18; TEMP 98.1; O2SAT 91
[2024-11-07 17:00] VITALS: BP 160/81; PULSE 62; RESP 19; TEMP 98.1; O2SAT 97
--- NOTE | 2024-11-07 19:56 | DVHDSRES ---
Discharge Summary Date of Admission Resident Creating Document: HADLEY BARNETT Nov 04, 2024 at 22:21 Date of Discharge: Nov 07, 2024 Labs/Diagnostic Data: Laboratory Results Test 11/07/24 05:25 11/05/24 05:07 11/05/24 00:35 11/04/24 22:00 POC Glucose 81 mg/dl (70-106) White Blood Count 8.2 10^3/uL (4.4-10.8) Red Blood Count 4.33 10^6/uL (4.0-5.20) Hemoglobin 12.8 g/dL (12.2-16.2) Hematocrit 38.6 % (36.0-46.0) Mean Corpuscular Volume 89.2 fL (80.0-100.0) Mean Corpuscular Hemoglobin 29.5 pg (28.0-32.0) Mean Corpuscular Hemoglobin Concent 33.1 g/dL (32.0-36.0) Red Cell Distribution Width 12.6 % (11.8-14.3) Platelet Count 166 10^3/uL (140-450) Mean Platelet Volume 8.0 fL (6.9-10.8) Neutrophils (%) (Auto) 73.7 % (37.0-80.0) Lymphocytes (%) (Auto) 17.2 % (10.0-50.0) Monocytes (%) (Auto) 5.7 % (0.0-12.0) Eosinophils (%) (Auto) 2.8 % (0.0-7.0) Basophils (%) (Auto) 0.6 % (0.0-2.0) Neutrophils # (Auto) 6.0 10 ^3/uL (1.6-8.6) Lymphocytes # (Auto) 1.4 10 ^3/uL (0.4-5.4) Monocytes # (Auto) 0.5 10 ^3/uL (0-1.3) Eosinophils # (Auto) 0.2 10 ^3/uL (0-0.8) Basophils # (Auto) 0.1 10 ^3/uL (0-0.2) Nucleated Red Blood Cells 0.1 % Sodium Level 143 mmol/L (136-145) Potassium Level 3.5 mmol/L (3.5-5.1) Chloride Level 104 mmol/L (98-107) Carbon Dioxide Level 30 mmol/L (20-31) Anion Gap 9 (5-15) Blood Urea Nitrogen 11 mg/dL (9-23) Creatinine 0.74 mg/dL (0.550-1.02) Glomerular Filtration Rate Calc 77 mL/min (>90) BUN/Creatinine Ratio 14.9 (10.0-20.0) Serum Glucose 105 mg/dL (74-106) Calcium Level 9.1 mg/dL (8.7-10.4) Total Bilirubin 0.8 mg/dL (0.2-1.0) Aspartate Amino Transferase (AST) 78 U/L (13-40) Alanine Aminotransferase (ALT) 76 U/L (7-40) Alkaline Phosphatase 145 U/L (46-116) Total Protein 6.2 g/dL (5.7-8.2) Albumin 3.5 g/dL (3.2-4.8) Prothrombin Time 11.1 sec (9.3-11.8) Prothrombin Time INR 1.05 (0.9-1.15) Activated Partial Thromboplast Time 26.0 SEC (24.5-34.5) D-Dimer, Quantitative 0.22 mg/L FEU (0.0-0.49) Hemoglobin A1c 6.8 % A1C (<5.7) Troponin I High Sensitivity 27 ng/L (</=34) B-Type Natriuretic Peptide 423.12 pg/mL (0-100) Urine Color Light-yellow (Yellow) Urine Clarity Turbid (Clear) Urine pH 7.0 (5.0-9.0) Urine Specific [place] 1.009 (1.001-1.035) Urine Protein Negative (Negative) Urine Ketones Negative (Negative) Urine Blood Trace /uL (Negative) Urine Nitrite 2+ (Negative) Urine Bilirubin Negative (Negative) Urine Urobilinogen Normal mg/dL (Negative) Urine Leukocyte Esterase Trace /uL (Negative) Urine RBC 1 /hpf (0 - 4) Urine Microscopic WBC 6 /HPF (0-5) Urine Squamous Epithelial Cells Few /hpf (<5) Urine Bacteria Few /hpf (None Seen) Urine Yeast (Budding) Occasional /hpf (None Urine Glucose Normal mg/dL (Normal) Test 11/04/24 17:11 11/04/24 16:03 11/04/24 14:41 Lactic Acid Level 2.0 mmol/L (0.4-2.0) Thyroid Stimulating Hormone (TSH) 1.90 uIU/mL (0.55-4.78) Lipase 61 U/L (12-53) Vitamin B12 Level 589 pg/mL (211-911) Folic Acid 28.60 ng/mL (>5.38) Other Laboratory Tests 11/05/24 05:07 Brief Hx & Hospital Course: Moon Metzger , an 89-year-old woman with a history of vertigo, hypertension, hyperlipidemia and congestive heart failure with ejection fraction 50%, an assisted living facility, presented to the ED after experiencing dizziness followed by syncopal episode. She reported feeling dizzy in the morning and briefly lost consciousness for 2-3 minutes while in her wheelchair. Later, after visiting a neighbor for lunch, she experienced severe low back pain while attempting to get out of her wheelchair. This was followed by lightheadedness and another syncopal event, during which she collapsed onto her walker. Her caregiver confirmed the episode and noted that she had vomited, although the patient does not recall losing consciousness. She denies prior episodes of syncope but has had multiple falls due to dizziness. Currently, she complains of persistent lower back pain and dizziness. She denies chest pain, head trauma, shortness of breath, palpitations, nausea, vomiting, fever, chills, headaches urinary symptoms, or gastrointestinal issues. She reports a history of taking Eliquis for an unspecified clot. Past medical history: vertigo, hypertension, hyperlipidemia, CHF Past surgical history: Appendicectomy, hysterectomy, cholecystectomy Family history: Reviewed, noncontributory Personal history: Denies smoking, drinking, drug use Lives in: Assisted Living facility Brief hospital course: Metabolic encephalopathy secondary to UTI, ruling out syncope on admission with evidence of normal vital signs, normal orthostatic vital signs, EKG showed sinus rhythm with left axis deviation, low voltage in precordial leads, and abnormal R-wave progression. Serial troponins were negative, and BNP was elevated at 423. CT head reveals no acute findings but showed mild chronic microvascular ischemic changes. Echocardiogram confirmed preserved ejection fraction with moderate left ventricular hypertrophy and no significant valvular abnormalities. CT abdomen and pelvis showed [id number] sigmoid diverticulosis and nonobstructive left renal caliceal stones. She was also diagnosed with a complicated urinary tract infection due to E coli and was treated with ceftriaxone. Lactic acid was initially elevated but normalized later and blood cultures remained negative. She experienced mild constipation which is managed with MiraLax. Vitamin-D, B12 folate levels within normal limits. Her diabetes was well controlled with a hemoglobin A1c of 6.8% and she was maintained on a mild insulin sliding scale. The patient remained hemodynamically stable throughout her stay. Fall precautions were implemented, and she was monitored on telemetry. She was discharged in stable condition on her home medications, including atorvastatin and atenolol, and a good MiraLax and insulin as needed. Recommendations included monitoring renal function, consider neurology consultation if symptoms related to renal stones arise and continuing fall precautions. Follow up with primary care and Cardiology was advised. Pt is lying on bed General Appearance: Alert, Oriented X3, Cooperative, Mild distress HEENT: Atraumatic, Mucous membranes moist/pink Respiratory: Clear to auscultation, Normal air movement, No added sounds Cardiovascular: Regular rate, Normal S1, Normal S2, No murmurs Abdominal/ : Active bowel sounds, Soft, no distention, no tenderness Extremities: No edema, Normal pulses, No tenderness/swelling, severe ecchymosis measuring 8x7 cm over the bilateral wrist region. Skin: No Significant rash, except past surgical scars Neuro: Normal speech, sensorimotor deficits none Psych/Mental Status: Mental status NL, Mood NL Nurse was there as clinical pharmacy coordinator during examination Case discussed with Dr. Valenzuela. Operations or Procedures Echocardiogram: lvef 50% moderate LVH normal rv function normal atria no severe valve abnormality noted Carotid Doppler ultrasound:No hemodynamically significant stenosis noted in the right carotid system. No hemodynamically significant stenosis noted in the left carotid system. EKG: Sinus rhythm Left axis deviation Low voltage, precordial leads Abnormal R-wave progression, late transition Signed PATIENT: MOON METZGER ACCT: [id number] UNIT: [id number] : 1935 LOC: ER ROOM / BED: / AGE / SEX: 89 / F ADM STATUS: REG ER SERVICE [id number] ORDERING PHYSICIAN: CALISTA SOTELO MD PROCEDURE(s): ABPL - CT AB PEL WO CON-NO ORAL OR IV REASON: abd pain n/v/constip ORDER NUMBER(s): [id number], ACCESSION NUMBER(s): [id number] EXAM: CT CT AB PEL WO CON-NO ORAL OR IV INDICATION: abd pain n/v/constip TECHNIQUE: Volumetric multidetector CT images of the abdomen and pelvis were obtained without contrast. All CT scans at this facility use dose modulation, iterative reconstruction, and/or weight based dosing when appropriate to reduce radiation dose to as low as reasonably achievable. COMPARISON: CT CT AB PEL WO CON-NO ORAL OR IV on DOS: 07/04/24 FINDINGS: [LOWER CHEST]: The partially visualized lung bases are clear without a pleural effusion. The cardiac size is normal without pericardial effusion. [LIVER]: Normal hepatic size without suspicious focal lesion. [GALLBLADDER AND BILIARY TREE]: Surgically absent. [SPLEEN]: Unremarkable. [PANCREAS]: Unremarkable. [ADRENAL GLANDS]: Unremarkable [KIDNEYS]: No hydronephrosis. Left 1 - 2 mm nonobstructive renal calyceal stones. [BLADDER]: Unremarkable for the degree distention. [REPRODUCTIVE ORGANS]: Hysterectomy. [BOWEL/MESENTERY]: Stomach is normal. No CT evidence of bowel obstruction. Mild to moderate sigmoid diverticulosis. [ASCITES]: Absent [LYMPHADENOPATHY]: No pathologically enlarged lymph nodes by CT size criteria [VASCULATURE]: No aneurysmal dilatation. [ABDOMINAL WALL]: Unremarkable. [MUSCULOSKELETAL]: No acute fracture or aggressive focal osseous lesion. Multifocal degenerative change of the visualized spine. IMPRESSION: 1. No CT evidence of an acute abdominal/pelvic process. 2. Mild to moderate sigmoid diverticulosis. 3. Nonobstructive left renal calyceal stones. 4. Mild to moderate sigmoid diverticulosis. Head CT:PATIENT: MOON METZGER ACCT: [id number] UNIT: [id number] : 1935 LOC: ER ROOM / BED: / AGE / SEX: 89 / F ADM STATUS: REG ER SERVICE [id number] ORDERING PHYSICIAN: CALISTA SOTELO MD PROCEDURE(s): HWOCT - HEAD WITHOUT CONTRAST REASON: syncope ORDER NUMBER(s): [id number], ACCESSION NUMBER(s): [id number] EXAM: CT HEAD WITHOUT CONTRAST INDICATION: syncope TECHNIQUE: CT images of the head were obtained without administration of IV contrast. CT scans at this facility use dose modulation, iterative reconstruction, and/or weight based dosing when appropriate to reduce radiation dose to as low as reasonably achievable. COMPARISON: None FINDINGS: PARENCHYMA: No acute hemorrhage. There is no mass effect, midline shift, or herniation. There is preservation of the lenz white differentiation. Mild scattered hypoattenuation along the periventricular, centrum semiovale, and deep white matter tracts, which are nonspecific however statistically most likely represent chronic microvascular ischemic change. VENTRICLES: No hydrocephalus. EXTRA-AXIAL SPACES: No extra-axial fluid collections. OTHER: The bony structures are intact. Visualized portions of the paranasal sinuses and mastoid air cells are clear. IMPRESSION: 1. No CT evidence of an acute intracranial abnormality. 2. Mild chronic microvascular ischemic change. CXR:FINDINGS/IMPRESSION: LUNGS: No pleural effusion, consolidation, or pneumothorax MEDIASTINUM: Unremarkable BONES: No acute osseous abnormality OTHER: None Carotid duplex study:Carotid Duplex Date: 11/05/2024 08:18 AM Clinical History: Syncope Comparison: None Technique: Duplex Doppler evaluation of the extracranial carotid and vertebral arteries including color Doppler and spectral/pulsed waveform analysis was performed. Findings: Velocities and ratios within normal limits IMPRESSION: No hemodynamically significant stenosis noted in the right carotid system. No hemodynamically significant stenosis noted in the left carotid system. Reference: Radiology 2003; 229:[id number] Condition at Discharge: Stable Final Diagnosis/Problems List Metabolic encephalopathy secondary to UTI Complicated UTI due to E. 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 Discharge Disposition: Home Discharge Instruct/Medications Diet: Consistent carbohydrate, Cardiac 2g Na,low cholest Activity: No Restrictions, As Tolerated Follow Up/Referral: Follow up with PCP Scheduled Apixaban Base (Eliquis), 1 TAB PO BID, (Reported) Atenolol (Atenolol), 1 TAB PO DAILY, (Reported) Cephalexin (Keflex Capsule), 1 CAP PO QID Furosemide (Furosemide), 1 TAB PO DAILY, (Reported) Metformin Hydrochloride (Metformin Hcl), 1 TAB PO BID Potassium Chloride (Klor-Con 10), 1 PO DAILY, (Reported) Scheduled PRN Acetaminophen (Acetaminophen), 650 MG PO Q6HP PRN Miscellaneous Medications Atorvastatin Calcium (Atorvastatin Calcium), 1 TAB PO, (Reported) Discontinued Medications Hydrochlorothiazide (Hydrochlorothiazide), 1 TAB PO DAILY, (Reported) Discharge Statement: "Patient was advised to return to the ER or call 911 if any headaches, dizziness, shortness of breath, chest pain, abdominal pain, bleeding, fevers, or worsening of medical condition. Patient was counseled about treatment plan, medications, possible side effects, patientverbalized understanding. All questions were answered to the best of my ability. This discharge took greater then 30 minutes in planning, reviewing documentation, counseling the patient, and discussing with other team members." ASSESSMENT ASSESSMENT Assessment Syncope Date of Service: Nov 07, 2024 Billing Provider: RAFAELA VALENZUELA MD Common Visit Codes: 55298-BPP/OBS DISCH DAY >30min HADLEY BARNETT RESIDENT Nov 07, 2024 19:56 ELLE FAUST RESIDENT Nov 13, 2024 11:02 RAFAELA VALENZUELA MD Nov 14, 2024 20:31
== END 2024-11-07 18:15 | disposition home or self-care (01) | DRG 70 ==
LOC: ER 14:08 → EDUNIT# 14:08 → EDBD 14:08 → OVERFLOW 22:21 → TELE-WESTW 11-05 12:48
PROVIDERS: ADMIT Student in an Organized Health Care Education/Training Program; ATTEND Student in an Organized Health Care Education/Training Program
DX: G93.41 Metabolic encephalopathy (principal); N17.0 Acute kidney failure with tubular necrosis; E87.1 Hypo-osmolality and hyponatremia; N39.0 Urinary tract infection, site not specified; I50.22 Chronic systolic (congestive) heart failure; I31.39 Other pericardial effusion (noninflammatory); R55 Syncope and collapse; E86.0 Dehydration; K57.30 Diverticulosis of large intestine without perforation or abscess without bleeding; E78.5 Hyperlipidemia, unspecified; I11.0 Hypertensive heart disease with heart failure; N20.0 Calculus of kidney; E11.9 Type 2 diabetes mellitus without complications; K59.00 Constipation, unspecified; Z79.4 Long term (current) use of insulin; Z90.710 Acquired absence of both cervix and uterus; Z90.49 Acquired absence of other specified parts of digestive tract; Z88.6 Allergy status to analgesic agent; Z79.899 Other long term (current) drug therapy; D64.9 Anemia, unspecified; K80.20 Calculus of gallbladder without cholecystitis without obstruction; E55.9 Vitamin D deficiency, unspecified; R26.89 Other abnormalities of gait and mobility
CPT/HCPCS: 36415; 70450; 71045; 74176; 80048; 80053; 81001; 82607; 82746; 82962; 83036; 83605; 83690; 83880; 84443; 84484; 85025; 85379; 85610; 85730; 87040; 87081; 87086; 87088; 87186; 93005; 93306; 93886; 96361; 96374; 97110; 97116; 97163; G0378; J1815; J2405

== ENCOUNTER 2024-12-22 20:50 | Inpatient (IN) | payer MEDICARE ==
[~2024-12-22] VITALS: Ht 154.9 cm; Wt 76.5 kg
[~2024-12-22 20:50] MED LIST: ACET-1882 PO; APIX2.5T PO; ATEN25TA PO; ATOR40TA52 PO; CEPH250C PO; FURO20TA4 PO; METF-370 PO; POTA-211 PO
--- NOTE | 2024-12-22 21:14 | ED.PDOC ---
History of Present Illness HPI Comments 89-year-old female who came to ER for nausea and vomiting. Patient has history of hypertension, diabetes and CHF. As of 7:00 p.m., patient started having episodes of nausea and vomiting, was having generalized weakness and lower back pains. Chief Complaint: Nausea/Vomiting Time Seen by MD: 21:14 Reviewed Notes: Nurses Notes Allergies: Coded Allergies: Codeine (Unverified Allergy, Unknown, 07/03/24) Home Meds Active Scripts Metformin Hydrochloride (Metformin Hcl) 500 Mg Tab, 1 TAB PO BID for 30 Days, #60 TAB 3 Refills Prov:ELLE FAUST RESIDENT 11/07/24 Cephalexin (KEFLEX CAPSULE) 250 Mg Cp, 1 CAP PO QID for 5 Days, #28 CAP Prov:ELLE FAUST RESIDENT 11/07/24 Acetaminophen (Acetaminophen) 325 Mg Tab, 650 MG PO Q6HP PRN for 15 Days, #120 TAB Prov:ELLE FAUST RESIDENT 11/07/24 Reported Medications Potassium Chloride (Klor-Con 10) 10 Meq Tab, 1 PO DAILY 11/05/24 Atenolol (Atenolol) 25 Mg Tab, 1 TAB PO DAILY 11/05/24 Furosemide (Furosemide) 20 Mg Tab, 1 TAB PO DAILY 11/05/24 Apixaban Base (ELIQUIS) 2.5 Mg Tab, 1 TAB PO BID 11/05/24 Atorvastatin Calcium (ATORVASTATIN CALCIUM) 40 Mg Tab, 1 TAB PO 11/05/24 Information Source: Patient, Emergency Med Personnel Mode of Arrival: EMS Severity: Moderate Timing: Hours Duration: Since onset Past Medical History PAST MEDICAL HISTORY: CHF, DM, High Lipids, HTN Surgical History: Denies all surgeries PRESS DEPARTMENT MANAGER History: No Pertinent PRESS DEPARTMENT MANAGER History Family History Family History: Reviewed,noncontributory to illness Social History Smoker: Non-Smoker Alcohol: Denies ETOH Use Drugs: Denies Drug Use Lives In: Assisted Care Constitutional: denies: chills, diaphoresis, fatigue, fever, malaise, sweats, weakness, others EENTM: denies: blurred vision, double vision, ear bleeding, ear discharge, ear drainage, ear pain, ear ringing, eye pain, eye redness, hearing loss, mouth pain, mouth swelling, nasal discharge, nose bleeding, nose congestion, nose pain, photophobia, tearing, throat pain, throat swelling, voice changes, others Respiratory: denies: cough, hemoptysis, orthopnea, SOB at rest, shortness of breath, SOB with excertion, stridor, wheezing, others Cardiovascular: denies: chest pain, dizzy spells, diaphoresis, Dyspnea on exertion, edema, irregular heart beat, left arm pain, lightheadedness, palpitations, PND, syncope, others Gastrointestinal: reports: nausea, vomiting; denies: abdomen distended, abdominal pain, blood streaked bowels, constipated, diarrhea, dysphagia, difficulty swallowing, hematemesis, melena, poor appetite, poor fluid intake, rectal bleeding, rectal pain, others Genitourinary: denies: abnormal vagina bleeding, burning, dyspareunia, dysuria, flank pain, frequency, hematuria, incontinence, pain, , vagina discharge, urgency, others Neurological: reports: weakness; denies: dizziness, fainting, headache, left sided numbness, left sided weakness, numbness, paresthesia, pre-existing deficit, right sided numbness, right sided weakness, seizure, speech problems, tingling, tremors, others Musculoskeletal: reports: back pain; denies: gout, joint pain, joint swelling, muscle pain, muscle stiffness, neck pain, others Integumetry: denies: bruises, change in color, change in hair/nails, dryness, laceration, lesions, lumps, rash, wounds, others Allergic/Immunocompromised: denies: Difficulty Healing, Frequent Infections, Hives, Itching, others Hematologic/Lymphatic: denies: anemia, blood clots, easy bleeding, easy bruising, swollen glands, others Endocrine: denies: excessive hunger, excessive sweating, excessive thirst, excessive urination, flushing, intolerance to cold, intolerance to heat, unexplained weight gain, unexplained weight loss, others Psychiatric: denies: anxiety, bipolar disorder, depression, hopeless, panic disorder, schizophrenia, sleepless, suicidal, others Physical Exam General Appearance: No Apparent Distress, Normal HEENT: Normal ENT Inspection, Pharynx Normal, TMs Normal Neck: Full Range of Motion, Non-Tender, Normal, Normal Inspection Respiratory: Chest Non-Tender, Lungs Clear, No Accessory Muscle Use, No Respiratory Distress, Normal Breath Sounds Cardiovascular: No Edema, No JVD, No Murmur, No Gallop, Normal Peripheral Pulses, Regular Rate/Rhythm Breast Exam: Deferred Gastrointestinal: No Organomegaly, Non Tender, No Pulsatile Mass, Normal Bowel Sounds, Soft Genitalia: Deferred Pelvic: Deferred Rectal: Deferred Extremities: No calf tenderness, Normal capillary refill, Normal inspection, Normal range of motion, Non-tender, No pedal edema Musculoskeletal : Apperance: Normal Neurologic: Alert, insurance checker II-XII nml as Tested, No Motor Deficits, Normal Affect, Normal Mood, No Sensory Deficits Cerebellar Function: Normal Reflexes: Normal Skin: Dry, Normal Color, Warm Lymphatic: No Adenopathy Was a procedure done? Was a procedure done?: No Differential Dx Considerations may include: Anemia, electrolyte imbalance, urinary tract infection X-Ray, Labs, Meds, VS Vital Signs Date Time Temp Pulse Resp B/P (MAP) Pulse Ox O2 Delivery O2 Flow Rate FiO2 12/22/24 21:00 68 12/22/24 20:50 97.7 68 16 138/67 96 97.7 Lab Test 12/22/24 21:15 Range/Units White Blood Count 6.3 4.4-10.8 10^3/uL Red Blood Count 4.47 4.0-5.20 10^6/uL Hemoglobin 13.2 12.2-16.2 g/dL Hematocrit 40.0 36.0-46.0 % Mean Corpuscular Volume 89.5 80.0-100.0 fL Mean Corpuscular Hemoglobin 29.5 28.0-32.0 pg Mean Corpuscular Hemoglobin Concent 33.0 32.0-36.0 g/dL Red Cell Distribution Width 13.3 11.8-14.3 % Platelet Count 180 140-450 10^3/uL Mean Platelet Volume 8.6 6.9-10.8 fL Neutrophils (%) (Auto) 69.5 37.0-80.0 % Lymphocytes (%) (Auto) 20.9 10.0-50.0 % Monocytes (%) (Auto) 6.0 0.0-12.0 % Eosinophils (%) (Auto) 2.6 0.0-7.0 % Basophils (%) (Auto) 1.0 0.0-2.0 % Neutrophils # (Auto) 4.4 1.6-8.6 10 ^3/uL Lymphocytes # (Auto) 1.3 0.4-5.4 10 ^3/uL Monocytes # (Auto) 0.4 0-1.3 10 ^3/uL Eosinophils # (Auto) 0.2 0-0.8 10 ^3/uL Basophils # (Auto) 0.1 0-0.2 10 ^3/uL Nucleated Red Blood Cells 0.0 % Sodium Level 141 136-145 mmol/L Potassium Level 3.7 3.5-5.1 mmol/L Chloride Level 102 98-107 mmol/L Carbon Dioxide Level 30 20-31 mmol/L Anion Gap 9 5-15 Blood Urea Nitrogen 13 9-23 mg/dL Creatinine 0.98 0.550-1.02 mg/dL Glomerular Filtration Rate Calc 55 >90 mL/min BUN/Creatinine Ratio 13.3 10.0-20.0 Serum Glucose 246 H 74-106 mg/dL Lactic Acid Level 2.3 *H 0.4-2.0 mmol/L Calcium Level 9.1 8.7-10.4 mg/dL Total Bilirubin 0.4 0.2-1.0 mg/dL Aspartate Amino Transferase (AST) 127 H 13-40 U/L Alanine Aminotransferase (ALT) 64 H 7-40 U/L Alkaline Phosphatase 129 H 46-116 U/L Troponin I High Sensitivity 12 </=34 ng/L Total Protein 6.9 5.7-8.2 g/dL Albumin 4.1 3.2-4.8 g/dL Time of 1ST Reevaluation: 21:10 Reevaluation 1ST: Unchanged Patient Education/Counseling: Diagnosis, Treatment Family Education/Counseling: No Family Present SEPSIS Sepsis Screen Date sepsis recognized/suspect: Dec 22, 2024 Time Sepsis recognized/suspect: 2049 Recent Procedure: No On Antibiotic Therapy: No Respiratory Rate >20: No Heart Rate >90: No Temp<36 C (96.8 F) or >38.3 C: No SBP <90 or MAP <65 mmHG: No New Acute Mental Status Change: No Is the patient on CPAP, BIPAP,: No Physician Orders Troponin-I Hs (12/23/24 00:00) Troponin-I Hs (12/23/24 03:00) Troponin-I Hs (12/23/24 06:00) Urinalysis (12/22/24 21:00) Sodium Chloride 0.9% (12/22/24 21:00) Blood Culture (12/22/24 21:00) Electrocardigram (12/22/24 21:00) Vital Signs Date Time Temp Pulse Resp B/P (MAP) Pulse Ox O2 Delivery O2 Flow Rate FiO2 12/22/24 21:00 68 12/22/24 20:50 97.7 68 16 138/67 96 97.7 Laboratory Tests Test 12/22/24 21:15 Lactic Acid Level 2.3 mmol/L (0.4-2.0) *H White Blood Count 6.3 10^3/uL (4.4-10.8) Departure 1 Departure Time of Disposition: 21:57 Impression: Primary Impression: Nausea and vomiting Additional Impressions: Dehydration Type 2 diabetes mellitus with hyperglycemia History of urinary tract infection Disposition: ADMITTED INPATIENT Admit to: Med Surg Condition: Guarded Discharged With: Self Comments 89-year-old female with generalized weakness and nausea and vomiting. Her blood sugar is elevated. Her lactic acid is elevated. Patient was given IV fluids and IV Zosyn antibiotics. I suspect UTI. Patient was admitted for UTI previously. Patient will need to be admitted for supportive care and further workup. Critical Care Note Critical Care Time?: Yes (35 min-critical care time only) Critical care comment: Total critical care time: Approximately 36 minutes Due to a high probability of clinically significant, life threatening deterioration, the patient required my highest level of preparedness to intervene emergently and I personally spent this critical care time directly and personally managing the patient. This critical care time included obtaining a history; examining the patient; pulse oximetry; ordering and review of studies; arranging urgent treatment with development of a management plan; evaluation of patient's response to treatment; frequent reassessment; and, discussions with other providers. This critical care time was performed to assess and manage the high probability of imminent, life-threatening deterioration that could result in multi-organ failure. It was exclusive of separately billable procedures and treating other patients. Stability Stability form required: No Heart Score Heart Score: Heart Score Response (Comments) Value History N/A 0 EKG N/A 0 Age N/A 0 Risk Factors N/A 0 Troponin N/A 0 Total 0 I personally scribed for CHRISTOPH THOMAS MD ([email or web address]) on 12/22/24 at 21:14. Electronically submitted by Tin Arciniega ([email or web address]). CHRISTOPH THOMAS MD Dec 22, 2024 21:14
[2024-12-22 21:38] LABS: Hematocrit 40.0 % (36.0-46.0); Hemoglobin 13.2 g/dL (12.2-16.2); Mean Corpuscular Hemoglobin 29.5 pg (28.0-32.0); Mean Corpuscular Volume 89.5 fL (80.0-100.0); Nucleated Red Blood Cells % 0.0 %
[2024-12-22 21:51] LABS: Alanine Aminotransferase 64 U/L (7-40); Albumin 4.1 g/dL (3.2-4.8); Alkaline Phosphatase 129 U/L (46-116); Anion Gap 9 (5-15); BUN/Creatinine Ratio 13.3 (10.0-20.0); Bilirubin, Total 0.4 mg/dL (0.2-1.0); Blood Urea Nitrogen 13 mg/dL (9-23); Calcium 9.1 mg/dL (8.7-10.4); Carbon Dioxide 30 mmol/L (20-31); Chloride 102 mmol/L (98-107); Glucose 246 mg/dL (74-106); Potassium 3.7 mmol/L (3.5-5.1); Sodium 141 mmol/L (136-145); Total Protein 6.9 g/dL (5.7-8.2)
[2024-12-22 21:54] LABS: Lactic Acid w/Reflex 2.3 mmol/L (0.4-2.0)
[2024-12-22] MEDS: ONDANSETRON HCL 4 MG/2 ML VIAL IV ONE (22:10)
[2024-12-22] MEDS: SODIUM CHLORIDE 0.9% 1,000 ML IVB ONE (22:10)
[2024-12-22] MEDS: PIPERACILLIN-TAZOB 3.375GM 100 ML IV ONE (22:11)
[2024-12-22] MEDS ORDERED: DOCUSATE SOD 100 MG CAP PO PRN (23:30)
[2024-12-22] MEDS ORDERED: IBUPROFEN 400 MG TAB PO PRN (23:30)
[2024-12-22] MEDS ORDERED: ONDANSETRON HCL 4 MG/2 ML VIAL IV PRN (23:30)
[2024-12-22] MEDS ORDERED: DEXTROSE (50%) 50ML SYRG IV PRN (23:45)
[2024-12-22] MEDS ORDERED: MORPHINE SULFATE INJ 2 MG/ml SYRG IV PRN (23:45)
[2024-12-22] MEDS ORDERED: NITROGLYCERIN 0.4 MG SL TAB SL PRN (23:45)
--- NOTE | 2024-12-22 23:48 | DVHHP2 ---
History of Present Illness Reason for Visit: Acute respiratory distress History of Present Illness The patient is a 89-year-old female with past medical history of CHF, diabetes mellitus, hyperlipidemia, and hypertension who presented to [facility] ED with complaint of shortness of breaths. Patient reports she has been experiencing difficulty breathing associated with generalized weakness, episodes of nausea, vomiting, lower back pain, getting worse that prompted this visit. Patient was seen and evaluated in the ED, laboratory data shows WBC 6.3, platelets 180, sodium 141, potassium 3.7, BUN 13, creatinine 0.98, glucose 246, calcium 9.1, BNP 159.92, AST 127, ALT 64, total bilirubin 0.8, troponin 12, alkaline phos 129, lactic acid 2.3 trending down to 1.3, blood pressure 160/42, heart rate 68, temperature 97.6 F, O2 saturation 96% on oxygen. Please see medication orders section in the computer. On my assessment, patient denied ches t pain, no headache, diaphoresis, currently on oxygen, no diarrhea, nausea or vomiting at this moment, fever, no chills. Patient was admitted for further evaluation and medical management. Past Medical History CHF, DM, High Lipids, HTN Past Surgical History Denies all surgeries Family History Reviewed, noncontributory to the management of this case. Past Social History The patient lives at home, denies smoking, alcohol or illicit drugs abuse. Review of Systems Constitutional: Yes: Weakness; No: Fever, Chills, Sweats, Malaise, Other Eyes: No: Pain, Vision change, Conjunctivae inflammation, Eyelid inflammation, Other, Redness ENT: No: Ear pain, Ear discharge, Nose pain, Nose discharge, Nose congestion, Mouth pain, Mouth swelling, Throat pain, Throat swelling, Other Respiratory: Shortness of breath, Other (SOB at rest); No: Cough, Dry, SOB with excertion, Wheezing, Hemoptysis, Pleuritic Pain, Sputum, Wheezing Cardiovascular: No: Chest Pain, Palpitations, Orthopnea, Paroxysmal Noc. Dyspnea, Edema, Lt Headedness, Other Gastrointestinal: Nausea, Vomiting; No: Abdominal Pain, Diarrhea, Constipation, Melena, Hematochezia, Other Genitourinary: No Dysuria, No Frequency, No Incontinence, No Hematuria, No Retention, No Other Musculoskeletal: No: other, neck pain, shoulder pain, arm pain, back pain, hand pain, leg pain, foot pain Skin: No: Rash, Lesions, Jaundice, Bruising, Other Neurological: No: Weakness, Numbness, Incoordination, Change in speech, Confusion, Seizures, Other Allergies: Coded Allergies: Codeine (Unverified Allergy, Unknown, 07/03/24) Medications Current Medications Medications Dose Ordered Sig/Giovana Route Start Time Stop Time Status Last Admin Dose Admin Atorvastatin Calcium 20 mg HS PO 12/23/24 22:00 Hydralazine HCl 10 mg Q6HP PRN IV 12/22/24 23:30 Ibuprofen 400 mg Q6HP PRN PO 12/22/24 23:30 Apixaban 2.5 mg BID PO 12/23/24 10:00 Sodium Chloride 10 ml Q8HR IV 12/23/24 06:00 Ondansetron HCl 4 mg Q4HP PRN IV 12/22/24 23:30 Docusate Sodium 100 mg BIDPRN PRN PO 12/22/24 23:30 Exam Vital Signs Vital Signs Date Time Temp Pulse Resp B/P (MAP) Pulse Ox O2 Delivery O2 Flow Rate FiO2 12/22/24 22:56 97.4 68 16 161/41 (81) 92 97.4 12/22/24 22:00 Room Air* 0 21 General Appearance: Alert, Oriented X3, Cooperative, No acute distress HEENT: Atraumatic, PERRLA, EOMI, Mucous membr. moist/pink Respiratory: Normal air movement Cardiovascular: Regular rate, Normal S1, Normal S2, No murmurs Abdominal: Normal bowel sounds, Soft, No tenderness, No hepatospenomegaly, No masses Extremities: No clubbing, No cyanosis, No edema, Normal pulses, No tenderness/swelling Skin: No rashes, No breakdown, No significant lesion Neuro: Normal speech, Normal tone, Sensation intact, Cranial nerves 3-12 NL, Reflexes 2+, Other (Generalized weakness) Psych/Mental Status: Mental status NL, Mood NL Labs/Xrays Labs Test 12/22/24 23:19 12/22/24 21:15 Range/Units White Blood Count 6.3 4.4-10.8 10^3/uL Red Blood Count 4.47 4.0-5.20 10^6/uL Hemoglobin 13.2 12.2-16.2 g/dL Hematocrit 40.0 36.0-46.0 % Mean Corpuscular Volume 89.5 80.0-100.0 fL Mean Corpuscular Hemoglobin 29.5 28.0-32.0 pg Mean Corpuscular Hemoglobin Concent 33.0 32.0-36.0 g/dL Red Cell Distribution Width 13.3 11.8-14.3 % Platelet Count 180 140-450 10^3/uL Mean Platelet Volume 8.6 6.9-10.8 fL Neutrophils (%) (Auto) 69.5 37.0-80.0 % Lymphocytes (%) (Auto) 20.9 10.0-50.0 % Monocytes (%) (Auto) 6.0 0.0-12.0 % Eosinophils (%) (Auto) 2.6 0.0-7.0 % Basophils (%) (Auto) 1.0 0.0-2.0 % Neutrophils # (Auto) 4.4 1.6-8.6 10 ^3/uL Lymphocytes # (Auto) 1.3 0.4-5.4 10 ^3/uL Monocytes # (Auto) 0.4 0-1.3 10 ^3/uL Eosinophils # (Auto) 0.2 0-0.8 10 ^3/uL Basophils # (Auto) 0.1 0-0.2 10 ^3/uL Nucleated Red Blood Cells 0.0 % Sodium Level 141 136-145 mmol/L Potassium Level 3.7 3.5-5.1 mmol/L Chloride Level 102 98-107 mmol/L Carbon Dioxide Level 30 20-31 mmol/L Anion Gap 9 5-15 Blood Urea Nitrogen 13 9-23 mg/dL Creatinine 0.98 0.550-1.02 mg/dL Glomerular Filtration Rate Calc 55 >90 mL/min BUN/Creatinine Ratio 13.3 10.0-20.0 Serum Glucose 246 H 74-106 mg/dL Calcium Level 9.1 8.7-10.4 mg/dL Total Bilirubin 0.4 0.2-1.0 mg/dL Aspartate Amino Transferase (AST) 127 H 13-40 U/L Alanine Aminotransferase (ALT) 64 H 7-40 U/L Alkaline Phosphatase 129 H 46-116 U/L Troponin I High Sensitivity 12 </=34 ng/L Total Protein 6.9 5.7-8.2 g/dL Albumin 4.1 3.2-4.8 g/dL SEPSIS Sepsis Screen Date sepsis recognized/suspect: Dec 22, 2024 Time Sepsis recognized/suspect: 2255 Recent Procedure: No On Antibiotic Therapy: No Respiratory Rate >20: No Heart Rate >90: No Temp<36 C (96.8 F) or >38.3 C: No SBP <90 or MAP <65 mmHG: No New Acute Mental Status Change: No Is the patient on CPAP, BIPAP,: No Physician Orders Troponin-I Hs (12/23/24 00:00) Troponin-I Hs (12/23/24 03:00) Troponin-I Hs (12/23/24 06:00) Urinalysis (12/22/24 21:00) Blood Culture (12/22/24 21:00) Electrocardigram (12/22/24 21:00) B-Type Natriuretic Peptide (12/22/24 23:28) Atorvastatin (Lipitor) (12/23/24 22:00) Hydralazine Injection (Apresoline Inject (12/22/24 23:30) Ibuprofen Tablet (Motrin Tablet) (12/22/24 23:30) Apixaban (Eliquis) (12/23/24 10:00) Allergies (12/22/24 23:28) Code Status (12/22/24 23:28) Sodium Chloride Lock (Saline Lock Ns) (12/23/24 06:00) Oxygen Per Hour (12/22/24 23:28) Ondansetron Hcl (Zofran) (12/22/24 23:30) Docusate Sodium Capsule (Colace Capsule) (12/22/24 23:30) Fall Risk Precautions In Place QSHIFT (12/22/24 23:28) Complete Blood Count (12/23/24 04:00) Comprehensive Metabolic Panel (12/23/24 04:00) Condition: Serious (12/22/24 23:28) Clear Liq Diet (12/23/24 Breakfast) Maintain Bed Rest (12/22/24 23:28) Sequential Compression Device (12/22/24 ) * [employer] (12/22/24 23:28) Glucose Blood (Accu-Chek Comfort Curve T (12/23/24 00:00) Mild Sliding Scale (12/23/24 00:00) Dextrose 50% Syringe (12/22/24 23:45) Nitroglycerin Sublingual (Ntrostat Subli (12/22/24 23:45) Morphine Sulfate Injection (12/22/24 23:45) Stat Ekg For Chest Pain (12/22/24 23:44) Notify Of Changes From Base (12/22/24 23:44) Bank Vault Clerk For 24 Hours (12/22/24 23:44) Emergency Dysrhythmia Protocol (12/22/24 23:44) Rhythm Strips Once Every Shift (12/22/24 23:44) Oxygen By Nasal Cannula (12/22/24 23:44) Admit (12/22/24 23:44) Vital Signs Date Time Temp Pulse Resp B/P (MAP) Pulse Ox O2 Delivery O2 Flow Rate FiO2 12/22/24 22:56 97.4 68 16 161/41 (81) 92 97.4 12/22/24 22:00 Room Air* 0 21 12/22/24 21:00 68 12/22/24 20:50 97.7 68 16 138/67 96 97.7 Laboratory Tests Test 12/22/24 21:15 12/22/24 23:19 Lactic Acid Level 2.3 mmol/L (0.4-2.0) *H Pending White Blood Count 6.3 10^3/uL (4.4-10.8) Medications Medications Dose Ordered Sig/Giovana Route Start Time Stop Time Status Last Admin Dose Admin Ondansetron HCl 4 mg ONCE ONCE IV 12/22/24 21:00 12/22/24 21:02 DC 12/22/24 22:10 4 MG Piperacillin Sod/ Tazobactam Sod 100 ml @ 100 mls/hr ONCE ONCE IV 12/22/24 22:00 12/22/24 22:59 DC 12/22/24 22:11 100 MLS/HR Sodium Chloride 1,000 ml @ 1,000 mls/hr Q1H ONCE IVB 12/22/24 21:00 12/22/24 21:59 DC 12/22/24 22:10 1,000 MLS/HR Assessment/Plan Assessment/Plan Acute respiratory distress Intractable Nausea and vomiting Dehydration Elevated liver enzymes Generalized weakness Type 2 diabetes mellitus with hyperglycemia Plan 1. Admit to telemetry unit 2. Breathing treatment 3. Pain control management 4. Management of fluids and electrolytes 5. Consultation for hospitalist 6. Diagnostic tests chest x-ray 7. DVT prophylaxis-on Eliquis 8. Repeat labs CBC, CMP in a.m. 9. Continue with current medical management 10. Treatment plan discussed with patient and RN. Patient verbalized understanding. Plan discussed with: Patient, Other (RN) My Orders Orders - ALEKSANDRA SPICER DNP Procedure Category Date Status Time B-Type Natriuretic LAB 12/22/24 In Process Peptide 23:28 Atorvastatin (Lipitor) PHA 12/23/24 In Process 22:00 Hydralazine Injection PHA 12/22/24 In Process (Apresoline Inject 23:30 Ibuprofen Tablet PHA 12/22/24 In Process (Motrin Tablet) 23:30 Apixaban (Eliquis) PHA 12/23/24 In Process 10:00 Allergies JEREMY 12/22/24 In Process 23:28 Code Status CODE 12/22/24 Transmitted 23:28 Sodium Chloride Lock PHA 12/23/24 In Process (Saline Lock Ns) 06:00 Oxygen Per Hour RT 12/22/24 Transmitted 23:28 Ondansetron Hcl PHA 12/22/24 In Process (Zofran) 23:30 Docusate Sodium PHA 12/22/24 In Process Capsule (Colace 23:30 Fall Risk Precautions JEREMY 12/22/[address] 23:28 Complete Blood Count LAB 12/23/24 Verified 04:00 Comprehensive LAB 12/23/24 Verified Metabolic Panel 04:00 Condition: Serious JEREMY 12/22/24 In Process 23:28 Clear Liq Diet DIET 12/23/24 Transmitted Breakfast Maintain Bed Rest JEREMY 12/22/24 In Process 23:28 Sequential JEREMY 12/22/24 In Process Compression Device * [employer] CONS 12/22/24 Transmitted 23:28 Glucose Blood PHA 12/23/24 Transmitted (Accu-Chek Comfort 00:00 Mild Sliding Scale PHA 12/23/24 Transmitted 00:00 Dextrose 50% Syringe PHA 12/22/24 Transmitted 23:45 Nitroglycerin PHA 12/22/24 Transmitted Sublingual (Ntrostat 23:45 Morphine Sulfate PHA 12/22/24 Transmitted Injection 23:45 Stat Ekg For Chest JEREMY 12/22/24 Transmitted Pain 23:44 Notify Of Changes JEREMY 12/22/24 Transmitted From Base 23:44 Bank Vault Clerk For JEREMY 12/22/24 Transmitted 24 Hours 23:44 Emergency Dysrhythmia [facility] 12/22/24 Transmitted Protocol 23:44 Rhythm Strips Once [facility] 12/22/24 Transmitted Every Shift 23:44 Oxygen By Nasal RT 12/22/24 Transmitted Cannula 23:44 Admit ADMIT 12/22/24 Transmitted 23:44 Problem List: (1) Acute respiratory distress (2) Intractable abdominal pain (3) Dehydration (4) Elevated liver enzymes (5) Generalized weakness (6) Type 2 diabetes mellitus with hyperglycemia Date of Service: Dec 22, 2024 Billing Provider: ALEKSANDRA SPICER DNP Common Visit Codes: [id number] INP/OBS CARE (HIGH) ALEKSANDRA SPICER DNP Dec 22, 2024 23:48
[2024-12-23] VITALS (9 sets, daily range): BP systolic 126–157; BP diastolic 65–77; PULSE 59–69; RESP 16–18; TEMP 96.9–97.7; O2SAT 95–99
[2024-12-23] MEDS: InsuLIN REG 1unit/0.01ml Soln (100units/ml) SC SCH
[2024-12-23] MEDS: ACCU-CHEK COMFORT CURVE STRIP VI SCH
[2024-12-23] MEDS: SODIUM CHLOR 0.9% PF (SALINE LOCK) 10ML VIAL/SYR IV SCH (05:11)
[2024-12-23 06:29] LABS: Hematocrit 37.8 % (36.0-46.0); Hemoglobin 12.7 g/dL (12.2-16.2); Mean Corpuscular Hemoglobin 29.9 pg (28.0-32.0); Mean Corpuscular Volume 88.8 fL (80.0-100.0); Nucleated Red Blood Cells % 0.0 %
[2024-12-23 06:39] LABS: Albumin 3.7 g/dL (3.2-4.8); Alkaline Phosphatase 109 U/L (46-116); Anion Gap 10 (5-15); BUN/Creatinine Ratio 14.3 (10.0-20.0); Blood Urea Nitrogen 10 mg/dL (9-23); Calcium 9.3 mg/dL (8.7-10.4); Carbon Dioxide 29 mmol/L (20-31); Chloride 106 mmol/L (98-107); Glucose 84 mg/dL (74-106); Potassium 3.7 mmol/L (3.5-5.1); Total Protein 6.2 g/dL (5.7-8.2)
[2024-12-23 06:40] LABS: Bilirubin, Total 0.6 mg/dL (0.2-1.0)
[2024-12-23 07:03] LABS: Alanine Aminotransferase 47 U/L (7-40); Sodium 145 mmol/L (136-145)
[2024-12-23] MEDS: APIXABAN 2.5 MG TAB PO SCH (10:13)
--- NOTE | 2024-12-23 11:30 | DVH ---
XY CHEST TWO VIEWS ROUTINE CLINICAL HISTORY: pneumonia COMPARISON: None TECHNIQUE: Frontal and lateral view of the chest was obtained FINDINGS: Lines and Tubes: None Lungs: No focal consolidation. Pleura: No effusion. No pneumothorax. Cardiomediastinal contours: Unremarkable Bones: No acute osseous abnormality. IMPRESSION: 1. No acute cardiopulmonary disease. 2. No significant change from 11/04/2024
--- NOTE | 2024-12-23 18:20 | DVHPN2 ---
Subjective In bed with no chest pain or sob Reviewed: H&P Changes from previous H/P or p: No Changes Eyes: No Pain, No Vision change, No Conjunctivae inflammation, No Eyelid inflammation, No Other, No Redness ENT: No Ear pain, No Ear discharge, No Nose pain, No Nose discharge, No Nose congestion, No Mouth pain, No Mouth swelling, No Throat pain, No Throat swelling, No Other Cardiovascular: No Chest Pain, No Palpitations, No Orthopnea, No Paroxysmal Noc. Dyspnea, No Edema, No Lt Headedness, No Other Respiratory: No Cough, No Dry; Shortness of breath; No SOB with excertion, No Wheezing, No Hemoptysis, No Pleuritic Pain, No Sputum; Other (SOB at rest) Gastrointestinal: Nausea, Vomiting; No Abdominal Pain, No Diarrhea, No Constipation, No Melena, No Hematochezia, No Other Genitourinary: No Dysuria, No Frequency, No Incontinence, No Hematuria, No Retention, No Other Musculoskeletal: No other, No neck pain, No shoulder pain, No arm pain, No back pain, No hand pain, No leg pain, No foot pain Skin: No Rash, No Lesions, No Jaundice, No Bruising, No Other Objective Vitals Vital Signs Date Time Temp Pulse Resp B/P (MAP) Pulse Ox O2 Delivery O2 Flow Rate FiO2 12/23/24 17:00 97.2 69 17 157/65 (95) 97 97.2 12/23/24 08:00 Nasal Cannula* 1 24 Intake/Output Intake and Output 12/23/24 05:00 Intake Total 400 ml Balance 400 ml Intake Oral 400 ml General Appearance: Alert, Oriented X3 HEENT: Atraumatic Cardiovascular: Regular rate, Normal S1, Normal S2 Abdomen: Normal bowel sounds Medications Current Medications Medications Dose Ordered Sig/Giovana Route Start Time Stop Time Status Last Admin Dose Admin Atorvastatin Calcium 20 mg HS PO 12/23/24 22:00 Hydralazine HCl 10 mg Q6HP PRN IV 12/22/24 23:30 Ibuprofen 400 mg Q6HP PRN PO 12/22/24 23:30 Apixaban 2.5 mg BID PO 12/23/24 10:00 12/23/24 10:13 2.5 MG Sodium Chloride 10 ml Q8HR IV 12/23/24 06:00 12/23/24 14:53 10 ML Ondansetron HCl 4 mg Q4HP PRN IV 12/22/24 23:30 Docusate Sodium 100 mg BIDPRN PRN PO 12/22/24 23:30 Diagnostic Test (Pha) 1 strip IQ4HR 12/23/24 00:00 12/23/24 03:57 1 STRIP Insulin Human Regular IQ4HR SC 12/23/24 00:00 12/23/24 13:08 2 UNITS Dextrose 50 ml UD PRN IV 12/22/24 23:45 Nitroglycerin 0.4 mg Q5MINP PRN SL 12/22/24 23:45 Morphine Sulfate 2 mg Q30M PRN IV 12/22/24 23:45 Laboratory Results Laboratory Tests 12/23/24 04:52 Chemistry Test 12/22/24 21:15 12/23/24 04:52 Albumin 4.1 g/dL (3.2-4.8) 3.7 g/dL (3.2-4.8) Calcium Level 9.1 mg/dL (8.7-10.4) 9.3 mg/dL (8.7-10.4) Total Protein 6.9 g/dL (5.7-8.2) 6.2 g/dL (5.7-8.2) Cardiac Markers Test 12/22/24 21:15 B-Type Natriuretic Peptide 159.92 pg/mL (0-100) LFT Test 12/22/24 21:15 12/23/24 04:52 Alanine Aminotransferase (ALT) 64 U/L (7-40) H 47 U/L (7-40) H Alkaline Phosphatase 129 U/L (46-116) H 109 U/L (46-116) Aspartate Amino Transferase (AST) 127 U/L (13-40) H 59 U/L (13-40) H Total Bilirubin 0.4 mg/dL (0.2-1.0) 0.6 mg/dL (0.2-1.0) Assessment/Plan Assessment/Plan Acute respiratory distress Intractable Nausea and vomiting Dehydration Elevated liver enzymes Generalized weakness Type 2 diabetes mellitus with hyperglycemia Monitor LFts, trending down now Chest Xray Dispo: DC tomorrow Plan discussed with: Patient My Orders Orders - KATHY MILES MD Procedure Category Date Status Time Chest Two Views XY 12/23/24 Resulted Routine 10:39 Date of Service: Dec 23, 2024 Billing Provider: KATHY MILES MD Common Visit Codes: [id number] INP/OBS CARE(HIGH) KATHY MILES MD Dec 23, 2024 18:20
--- NOTE | 2024-12-23 18:58 | DVHINCON2 ---
Date of service: Dec 23, 2024 History of Present Illness Per HPI - "89-year-old female with past medical history of CHF, diabetes mellitus, hyperlipidemia, and hypertension who presented to [facility] ED with complaint of shortness of breaths. Patient reports she has been experiencing difficulty breathing associated with generalized weakness, episodes of nausea, vomiting, lower back pain, getting worse that prompted this visit. Patient was seen and evaluated in the ED, laboratory data shows WBC 6.3, platelets 180, sodium 141, potassium 3.7, BUN 13, creatinine 0.98, glucose 246, calcium 9.1, BNP 159.92, AST 127, ALT 64, total bilirubin 0.8, troponin 12, alkaline phos 129, lactic acid 2.3 trending down to 1.3, blood pressure 160/42, heart rate 68, temperature 97.6 F, O2 saturation 96% on oxygen. Please see medication orders section in the computer. On my assessment, patient denied chest pain, no headache, diaphoresis, currently on oxygen, no diarrhea, nausea or vomiting at this moment, fever, no chills. Patient was admitted for further evaluation and medical management." GI team consulted for N/V. Per pt, has episodes of N/V intermittently, back pain is the trigger. Sx resolved now. Tolerating diet well. No EGD/colonoscopy prior. Past Medical History Reviewed Past Surgical History Reviewed Family History: Cardiac disorder G8 MOTHER Allergies: Coded Allergies: Codeine (Unverified Allergy, Unknown, 07/03/24) Home Meds Active Scripts Metformin Hydrochloride (Metformin Hcl) 500 Mg Tab, 1 TAB PO BID for 30 Days, #60 TAB 3 Refills Prov:ELLE FAUST RESIDENT 11/07/24 Cephalexin (KEFLEX CAPSULE) 250 Mg Cp, 1 CAP PO QID for 5 Days, #28 CAP Prov:ELLE FAUST RESIDENT 11/07/24 Acetaminophen (Acetaminophen) 325 Mg Tab, 650 MG PO Q6HP PRN for 15 Days, #120 TAB Prov:ELLE FAUST RESIDENT 11/07/24 Reported Medications Potassium Chloride (Klor-Con 10) 10 Meq Tab, 1 PO DAILY 11/05/24 Atenolol (Atenolol) 25 Mg Tab, 1 TAB PO DAILY 11/05/24 Furosemide (Furosemide) 20 Mg Tab, 1 TAB PO DAILY 11/05/24 Apixaban Base (ELIQUIS) 2.5 Mg Tab, 1 TAB PO BID 11/05/24 Atorvastatin Calcium (ATORVASTATIN CALCIUM) 40 Mg Tab, 1 TAB PO 11/05/24 Current Medications Current Medications Medications (Trade) Dose Ordered Sig/Giovana Route PRN Reason Start Time Stop Time Status Last Admin Atorvastatin Calcium (Lipitor) 20 mg HS PO 12/23/24 22:00 Hydralazine HCl (Apresoline Injection) 10 mg Q6HP PRN IV SBP>150 12/22/24 23:30 Ibuprofen (Motrin Tablet) 400 mg Q6HP PRN PO PAIN SCALE 1-3 OR TEMP>100.4 12/22/24 23:30 Apixaban (Eliquis) 2.5 mg BID PO 12/23/24 10:00 12/23/24 10:13 Sodium Chloride (Saline Lock Ns) 10 ml Q8HR IV 12/23/24 06:00 12/23/24 14:53 Ondansetron HCl (Zofran) 4 mg Q4HP PRN IV NAUSEA / VOMITING 12/22/24 23:30 Docusate Sodium (Colace Capsule) 100 mg BIDPRN PRN PO FOR CONSTIPATION 12/22/24 23:30 Diagnostic Test (Pha) (Accu-Chek Comfort Curve T) 1 strip IQ4HR 12/23/24 00:00 12/23/24 03:57 Insulin Human Regular (InsuLIN R) IQ4HR SC 12/23/24 00:00 12/23/24 13:08 Dextrose 50 ml UD PRN IV Blood Sugar LESS THAN 60 12/22/24 23:45 Nitroglycerin (Ntrostat Sublingual) 0.4 mg Q5MINP PRN SL FOR CHEST PAIN 12/22/24 23:45 Morphine Sulfate 2 mg Q30M PRN IV FOR CHEST PAIN 12/22/24 23:45 Review of Systems 14 point ROS negative except mentioned above Vital Signs Vital Signs Date Time Temp Pulse Resp B/P (MAP) Pulse Ox O2 Delivery O2 Flow Rate FiO2 12/23/24 17:00 97.2 69 17 157/65 (95) 97 97.2 12/23/24 08:00 Nasal Cannula* 1 24 Physical Exam GE: in no distress CVS: S1S2+ Lungs: clear Abdomen: soft, nondistended, nontender, BS+ Labs/Diagnostic Data Labs Test 12/23/24 16:53 12/23/24 04:52 12/22/24 23:19 12/22/24 21:15 Range/Units POC Glucose 126 H 70-106 mg/dl White Blood Count 6.0 4.4-10.8 10^3/uL Red Blood Count 4.25 4.0-5.20 10^6/uL Hemoglobin 12.7 12.2-16.2 g/dL Hematocrit 37.8 36.0-46.0 % Mean Corpuscular Volume 88.8 80.0-100.0 fL Mean Corpuscular Hemoglobin 29.9 28.0-32.0 pg Mean Corpuscular Hemoglobin Concent 33.6 32.0-36.0 g/dL Red Cell Distribution Width 13.2 11.8-14.3 % Platelet Count 165 140-450 10^3/uL Mean Platelet Volume 8.3 6.9-10.8 fL Neutrophils (%) (Auto) 63.6 37.0-80.0 % Lymphocytes (%) (Auto) 25.8 10.0-50.0 % Monocytes (%) (Auto) 5.9 0.0-12.0 % Eosinophils (%) (Auto) 3.9 0.0-7.0 % Basophils (%) (Auto) 0.8 0.0-2.0 % Neutrophils # (Auto) 3.8 1.6-8.6 10 ^3/uL Lymphocytes # (Auto) 1.6 0.4-5.4 10 ^3/uL Monocytes # (Auto) 0.4 0-1.3 10 ^3/uL Eosinophils # (Auto) 0.2 0-0.8 10 ^3/uL Basophils # (Auto) 0 0-0.2 10 ^3/uL Nucleated Red Blood Cells 0.0 % Sodium Level 145 136-145 mmol/L Potassium Level 3.7 3.5-5.1 mmol/L Chloride Level 106 98-107 mmol/L Carbon Dioxide Level 29 20-31 mmol/L Anion Gap 10 5-15 Blood Urea Nitrogen 10 9-23 mg/dL Creatinine 0.70 0.550-1.02 mg/dL Glomerular Filtration Rate Calc 83 >90 mL/min BUN/Creatinine Ratio 14.3 10.0-20.0 Serum Glucose 84 74-106 mg/dL Calcium Level 9.3 8.7-10.4 mg/dL Total Bilirubin 0.6 0.2-1.0 mg/dL Aspartate Amino Transferase (AST) 59 H 13-40 U/L Alanine Aminotransferase (ALT) 47 H 7-40 U/L Alkaline Phosphatase 109 46-116 U/L Troponin I High Sensitivity 15 </=34 ng/L Total Protein 6.2 5.7-8.2 g/dL Albumin 3.7 3.2-4.8 g/dL Lactic Acid Level 1.3 0.4-2.0 mmol/L B-Type Natriuretic Peptide 159.92 0-100 pg/mL Assessment #Nausea/vomiting, triggered by back pain per pt, resoved #Back pain #Elevated liver enzymes Monitor liver enzymes. Check acute hep panel and US abd to eval liver Diet as tolerated GI clinic f/u out pt after dc or PCP to check on liver enzymes Care plan discussed with pt in detail Thank you for the consult. Plan discussed with: Patient KECIA ENGEL MD Dec 23, 2024 18:58
[2024-12-23] MEDS: ATORVASTATIN 20 MG TAB PO SCH (22:11)
[2024-12-24 01:00] VITALS: BP 125/61; PULSE 73; RESP 16; TEMP 98.2; O2SAT 94
[2024-12-24 05:00] VITALS: BP 147/70; PULSE 73; RESP 16; TEMP 98.3; O2SAT 95
[2024-12-24 08:00] VITALS: PULSE 73; RESP 19
[2024-12-24 09:00] VITALS: BP 126/67; PULSE 73; RESP 20; TEMP 97.9; O2SAT 95
[2024-12-24 13:00] VITALS: BP 133/81; PULSE 67; RESP 20; TEMP 97.3; O2SAT 96
--- NOTE | 2024-12-24 13:14 | DVHDS2 ---
Discharge Summary Date of Admission Dec 22, 2024 at 23:44 Date of Discharge: Dec 24, 2024 Labs/Diagnostic Data: Laboratory Results Test 12/24/24 12:35 12/23/24 04:52 12/22/24 23:19 12/22/24 21:15 POC Glucose 208 mg/dl (70-106) White Blood Count 6.0 10^3/uL (4.4-10.8) Red Blood Count 4.25 10^6/uL (4.0-5.20) Hemoglobin 12.7 g/dL (12.2-16.2) Hematocrit 37.8 % (36.0-46.0) Mean Corpuscular Volume 88.8 fL (80.0-100.0) Mean Corpuscular Hemoglobin 29.9 pg (28.0-32.0) Mean Corpuscular Hemoglobin Concent 33.6 g/dL (32.0-36.0) Red Cell Distribution Width 13.2 % (11.8-14.3) Platelet Count 165 10^3/uL (140-450) Mean Platelet Volume 8.3 fL (6.9-10.8) Neutrophils (%) (Auto) 63.6 % (37.0-80.0) Lymphocytes (%) (Auto) 25.8 % (10.0-50.0) Monocytes (%) (Auto) 5.9 % (0.0-12.0) Eosinophils (%) (Auto) 3.9 % (0.0-7.0) Basophils (%) (Auto) 0.8 % (0.0-2.0) Neutrophils # (Auto) 3.8 10 ^3/uL (1.6-8.6) Lymphocytes # (Auto) 1.6 10 ^3/uL (0.4-5.4) Monocytes # (Auto) 0.4 10 ^3/uL (0-1.3) Eosinophils # (Auto) 0.2 10 ^3/uL (0-0.8) Basophils # (Auto) 0 10 ^3/uL (0-0.2) Nucleated Red Blood Cells 0.0 % Sodium Level 145 mmol/L (136-145) Potassium Level 3.7 mmol/L (3.5-5.1) Chloride Level 106 mmol/L (98-107) Carbon Dioxide Level 29 mmol/L (20-31) Anion Gap 10 (5-15) Blood Urea Nitrogen 10 mg/dL (9-23) Creatinine 0.70 mg/dL (0.550-1.02) Glomerular Filtration Rate Calc 83 mL/min (>90) BUN/Creatinine Ratio 14.3 (10.0-20.0) Serum Glucose 84 mg/dL (74-106) Calcium Level 9.3 mg/dL (8.7-10.4) Total Bilirubin 0.6 mg/dL (0.2-1.0) Aspartate Amino Transferase (AST) 59 U/L (13-40) Alanine Aminotransferase (ALT) 47 U/L (7-40) Alkaline Phosphatase 109 U/L (46-116) Troponin I High Sensitivity 15 ng/L (</=34) Total Protein 6.2 g/dL (5.7-8.2) Albumin 3.7 g/dL (3.2-4.8) Lactic Acid Level 1.3 mmol/L (0.4-2.0) B-Type Natriuretic Peptide 159.92 pg/mL (0-100) Other Laboratory Tests 12/23/24 04:52 Brief Hx & Hospital Course: 89-year-old female with past medical history of CHF, diabetes mellitus, hyperlipidemia, and hypertension who presented to [facility] ED with complaint of shortness of breaths. Patient reports she has been experiencing difficulty breathing associated with generalized weakness, episodes of nausea, vomiting, lower back pain, getting worse that prompted this visit. Patient was seen and evaluated in the ED, laboratory data shows WBC 6.3, platelets 180, sodium 141, potassium 3.7, BUN 13, creatinine 0.98, glucose 246, calcium 9.1, BNP 159.92, AST 127, ALT 64, total bilirubin 0.8, troponin 12, alkaline phos 129, lactic acid 2.3 trending down to 1.3, blood pressure 160/42, heart rate 68, temperature 97.6 F, O2 saturation 96% on oxygen. Please see medication orders section in the computer. On my assessment, patient denied chest pain, no headache, diaphoresis, currently on oxygen, no diarrhea, nausea or vomiting at this moment, fever, no chills. Patient was admitted for further evaluation and medical management. LFts got better Not septic and no cultures positive Condition at Discharge: Good Final Diagnosis/Problems List Transaminitis Discharge Disposition: Home Discharge Instruct/Medications Scheduled Apixaban Base (Eliquis), 1 TAB PO BID, (Reported) Atenolol (Atenolol), 1 TAB PO DAILY, (Reported) Cephalexin (Keflex Capsule), 1 CAP PO QID Furosemide (Furosemide), 1 TAB PO DAILY, (Reported) Metformin Hydrochloride (Metformin Hcl), 1 TAB PO BID Potassium Chloride (Klor-Con 10), 1 PO DAILY, (Reported) Scheduled PRN Acetaminophen (Acetaminophen), 650 MG PO Q6HP PRN Miscellaneous Medications Atorvastatin Calcium (Atorvastatin Calcium), 1 TAB PO, (Reported) Discharge Statement: "Patient was advised to return to the ER or call 911 if any headaches, dizziness, shortness of breath, chest pain, abdominal pain, bleeding, fevers, or worsening of medical condition. Patient was counseled about treatment plan, medications, possible side effects, patientverbalized understanding. All questions were answered to the best of my ability. This discharge took greater then 30 minutes in planning, reviewing documentation, counseling the patient, and discussing with other team members." ASSESSMENT ASSESSMENT Assessment Date of Service: Dec 24, 2024 Billing Provider: KATHY MILES MD Common Visit Codes: 51356-RHB/OBS DISCH DAY >30min KATHY MILES MD Dec 24, 2024 13:14
[2024-12-24 17:00] VITALS: BP 167/84; PULSE 75; RESP 18; TEMP 98
[2024-12-24] MEDS: hydrALAZINE HCL 20 MG/ML VL IV PRN (17:21)
[2024-12-24] MEDS: ATENOLOL 25 MG TAB PO ONE (17:37)
--- NOTE | 2024-12-26 08:52 | ECG ---
[facility] Test Date: 2024-12-22 Test Time: 21:00:08 Pat Name: [facility] Department: [facility] ED Patient ID: [facility]-[id number] Room: [facility] Gender: F Scalp Specialist: agustina : 1935 Requested By: CHRISTOPH THOMAS Order Number: [id number] Reading MD: Measurements Intervals [place] Rate: 68 P: -2 CA: 174 QRS: -34 QRSD: 85 T: 55 QT: 409 QTc: 436 Interpretive Statements Sinus rhythm Left axis deviation Low voltage, precordial leads Abnormal R-wave progression, early transition Consider anterior infarct Please click the below link to view image of tracing.
== END 2024-12-24 18:15 | disposition home or self-care (01) | DRG 391 ==
LOC: EDUNIT# 20:50 → EDBD 20:50 → ER 20:51 → OVERFLOW 23:44 → TELE-WESTW 12-23 01:16
PROVIDERS: ADMIT Hospitalist; ATTEND Hospitalist
DX: A08.4 Viral intestinal infection, unspecified (principal); I50.33 Acute on chronic diastolic (congestive) heart failure; I11.0 Hypertensive heart disease with heart failure; E11.65 Type 2 diabetes mellitus with hyperglycemia; M54.50 Low back pain, unspecified; E78.5 Hyperlipidemia, unspecified; R06.03 Acute respiratory distress; R74.01 Elevation of levels of liver transaminase levels; R74.8 Abnormal levels of other serum enzymes; Z88.5 Allergy status to narcotic agent; Z87.440 Personal history of urinary (tract) infections; Z82.49 Family history of ischemic heart disease and other diseases of the circulatory system; Z79.899 Other long term (current) drug therapy
CPT/HCPCS: 36415; 71046; 80053; 82962; 83605; 83880; 84484; 85025; 87040; 93005; 96365; 96375; 99291; G0378; J1815; J2405; J2543